=== PATIENT | female | born 1950 | race Caucasian/White ===

== ENCOUNTER → 2018-04-24 07:23 | Outpatient (CLI) | payer OTHER, SELFPAY | PROVIDERS: PCP Nurse Practitioner; Visit Provider Surgery | DX: M71.22 Synovial cyst of popliteal space [Baker], left knee (principal) | CPT/HCPCS: 99202 ==

== ENCOUNTER 2018-09-26 01:14 | Outpatient (CLI) | payer OTHER, SELFPAY ==
--- NOTE | 2018-09-26 12:10 | DI.MAMMO_ITS ---
SYMPTOMS/DIAGNOSIS: SCREENING, Z12.31; PREVENTATIVE HEALTH CARE, Z00.00; FAMILY H/O BREAST CA, Z80.3 BILATERAL SCREENING MAMMOGRAMS: Mammograms were interpreted according to the usual protocol including computer analysis with CAD system, tomosynthesis and C view imaging. Comparison is made with exams from 2011 through 2017. The breasts are composed of scattered fibroglandular densities, breast density category B. No suspicious masses or suspicious microcalcifications are seen. There has been no significant change. IMPRESSION: Category 1B, negative mammogram. Yearly screening mammography is recommended. [facility] ASSESSMENT OF FINDINGS: Negative. Category 1. Patient will receive a letter notifying them of these results. BI-RADS category B. There are scattered areas of fibroglandular density.
== END 2018-09-26 01:34 ==
PROVIDERS: PCP Nurse Practitioner; Visit Provider Nurse Practitioner
DX: Z12.31 Encounter for screening mammogram for malignant neoplasm of breast (principal); Z80.3 Family history of malignant neoplasm of breast
CPT/HCPCS: 77063; 77067

== ENCOUNTER 2018-10-15 00:50 | Outpatient (CLI) | payer OTHER, SELFPAY ==
--- NOTE | 2018-10-15 10:54 | DI.US_ITS ---
SYMPTOM/DIAGNOSIS: CAROTID ARTERY STENOSIS, I65.23 CAROTID ULTRASOUND: There is a mild amount of calcific plaque in the right common carotid bulb. The velocity measurements in the right internal carotid artery are in the normal range, consistent with mild stenosis. The left common carotid bulb shows a moderate quantity of calcific plaque. There is velocity elevation in the proximal left internal carotid artery consistent with a 50-60% stenosis. The right vertebral artery shows antegrade flow. Bi-directional flow is noted in the left vertebral artery. IMPRESSION: Moderate stenosis of 50-60% in the proximal left internal carotid artery.
== END 2018-10-15 01:10 ==
PROVIDERS: PCP Nurse Practitioner; Visit Provider Nurse Practitioner
DX: I65.22 Occlusion and stenosis of left carotid artery (principal)
CPT/HCPCS: 93880

== ENCOUNTER 2019-01-31 11:40 | Outpatient (REF) | payer OTHER, SELFPAY ==
[2019-01-31 13:53] LABS: HCT 42.1 % (36.0-46.0); HGB 13.9 g/dL (12.0-15.5); Mean Corpuscular Hemoglobin 29.6 pg (27.0-33.0); Mean Corpuscular Volume 89.6 fL (80-95); Mean Platelet Volume 11.4 fL (8.0-11.0); Platelet Count 267 x1000/uL (130-400); RBC Distribution Width 14.1 % (11.7-14.6); White Blood Cell Count 7.63 k/cumm (4.4-10.8)
[2019-01-31 13:59] LABS: Iron 91 ug/dL (50-175); Total Iron Binding Capacity 337 ug/dL (250-450); Transferrin Sat 27 % (15-50)
[2019-01-31 14:09] LABS: ALT 19 U/L (12-78); AST 27 U/L (15-37); Anion Gap 6.8 mmol/L (3-11); BUN 17 mg/dL (7-18); CO2 30.2 mmol/L (21.0-32.0); CREATININE 0.84 mg/dL (0.55-1.02); Calcium 9.3 mg/dL (8.5-10.1); Chloride 101 mmol/L (98-107); Cholesterol 211 mg/dL (50-200); Glucose 91 mg/dL (70-100); HDL Cholesterol 105 mg/dL (40-60); LDL CHOLESTEROL 80 mg/dL (<100); Potassium 4.3 mmol/L (3.5-5.1); Sodium 138 mmol/L (136-145); Triglyceride 40 mg/dL (30-150)
[2019-01-31 14:26] LABS: Vitamin D 25 Total 14.6 ng/ml (30-100)
[2019-02-01 14:08] LABS: ANA Interpretation Positive (NEGAT); ANA Titer Pattern SEE COMMENTS
[2019-02-01 15:29] LABS: Lyme Ab w Rflx to Lyme Confirm Negative
[2019-02-02 00:07] LABS: Anaplasma phagocytophilum Negative (Negative); B. miyamotoi PCR Negative (Negative); Babesia divergens/MO-1 Negative (Negative); Babesia duncani Negative (Negative); Babesia microti Negative (Negative); Ehrlichia chaffeensis Negative (Negative); Ehrlichia ewingii/canis Negative (Negative); Ehrlichia muris eauclairensis Negative (Negative)
== END 2019-01-31 12:00 ==
LOC: NCHCN 11:40
PROVIDERS: PCP Nurse Practitioner Family; Visit Provider Nurse Practitioner Family
DX: R53.83 Other fatigue (principal); I65.23 Occlusion and stenosis of bilateral carotid arteries; E55.9 Vitamin D deficiency, unspecified; R79.89 Other specified abnormal findings of blood chemistry
CPT/HCPCS: 80048; 80061; 82306; 83721; 85027; 83540; 83550; 84439; 84443; 84450; 84460; 86038; 86618; 87798

== ENCOUNTER 2019-02-08 10:03 | Outpatient (REF) | payer OTHER, SELFPAY ==
[2019-02-08 22:01] LABS: Vitamin B12 393 pg/mL (193-986)
[2019-02-11 10:18] LABS: Cyclic Citrullinated Peptide <2.5 U/mL (<5.0)
[2019-02-11 11:35] LABS: Rheumatoid Factor 9 IU/mL (<12.5)
[2019-02-12 10:22] LABS: Sm (Smith) Ab, IgG 2.9 Units (<20)
[2019-02-12 10:57] LABS: dsDNA Ab, IgG 56.6 IU/mL (<30)
== END 2019-02-08 10:23 ==
LOC: NCHCN 10:03
PROVIDERS: PCP Nurse Practitioner Family; Visit Provider Nurse Practitioner Family
DX: R76.0 Raised antibody titer (principal)
CPT/HCPCS: 86200; 82607; 86225; 86235; 86431

== ENCOUNTER 2019-03-04 13:38 | Outpatient (CLI) | payer OTHER, SELFPAY ==
--- NOTE | 2019-03-04 13:28 | DI.RAD_ITS ---
SYMPTOM/DIAGNOSIS: THUMB PAIN RIGHT THUMB: There is narrowing and spurring in the interphalangeal joint of the thumb. No bony erosions are seen. There is mild spurring at the first metacarpal phalangeal joint. There are severe degenerative changes at the first carpal metacarpal joint. There is prominent periarticular spurring, sclerosis and some lateral subluxation. IMPRESSION: Severe degenerative changes at the first carpal metacarpal joint.
== END 2019-03-04 13:58 ==
PROVIDERS: PCP Nurse Practitioner Family; Referring Provider Nurse Practitioner Family; Visit Provider Student in an Organized Health Care Education/Training Program
DX: M79.641 Pain in right hand (principal); M79.644 Pain in right finger(s); M18.11 Unilateral primary osteoarthritis of first carpometacarpal joint, right hand
CPT/HCPCS: 99202; 99203; 73140

== ENCOUNTER 2019-05-07 08:52 | Outpatient (CLI) | payer OTHER, SELFPAY ==
--- NOTE | 2019-05-07 08:04 | HPE_ITS ---
Assessment and Plan (1) Osteoarthritis of carpometacarpal (CMC) joint of right thumb: Current visit: No Status: Chronic Plan: Educated patient on surgery covering surgical technique, recovery process, benefits and risks including but not limited to risk of infection, blood clot, damage to soft tissue/blood vessels/nerves in detail. After discussion patient gives verbal understanding of risks and elects to proceed with scheduling surgery. Patient had opportunity to have questions answered to their satisfaction. They will contact office if issues arise. Patient will continue to be scheduled for right trapezial resection arthroplasty with Dr. Canela. Qualifiers: Osteoarthritis type: primary Qualified Code(s): M18.11 - Unilateral primary osteoarthritis of first carpometacarpal joint, right hand History of Present Illness Narrative: Ms. Boateng is a 68-year-old right-hand dominant female who presents to clinic for pre-operative visit for scheduled right trapezial resection arthroplasty with Dr. Canela. Patient denies having significant pain in her right thumb, however she has had difficulty using her right thumb since November 2018. She has had increased difficulty using her right thumb for desired activity such as when playing a guitar. Her thumb also feels out of place when at rest and when holding the steering wheel. She continues to have difficulty using her right hand for gripping i.e. opening jars. Denies any known direct injury or trauma; reports active lifestyle with many falls over the years during skiing and biking. Denies any symptoms of numbness or tingling in her right hand. Based on her x-rays patient was diagnosed with severe arthritis of the CMC joint of her thumb involving significant wear and sclerosis of her trapeizum. Due to her symptoms she was offered surgical intervention and was eager to proceed. Pertinent Surgical Information Patient reports she discontinued ASA 81 mg for carotid stenosis after experiencing significant bruising. Upon further questioning she states that her PCP and [employer] told her it was okay to stop ASA and that she did not need to take additional medication since her cholesterol had also improved. Reports history of murmur throughout her life that has been noted on periodically. Denies murmur being picked up regularly. Denies being told where murmur was appreciated. Denies any cardiac review of systems. Was originally diagnosed with Lupus, however after being seen at [facility] Rheumatology she was told she does not have Lupus. Further work up revealed that her symptoms of fatigue, muscle weakness and pain are likely due to vitamin D deficiency. Denies past medical history of: Hypertension, stroke, cardiac issues, angina, COPD, sleep apnea, renal issues, liver issues, hepatitis, gastrointestinal issues, ulcers, bleeding disorders, seizures, migraines, anxiety, depression, diabetes, thyroid issues Reports waking up agitated from anesthesia; denies any known complications. Denies prior complications from surgery. Review of Systems Constitutional Denies fever(s), Denies frequent falls and Denies headache(s) Eyes Denies change in vision ENT Denies dizziness, Denies ear discharge, Denies headache(s), Denies epistaxis, Denies nasal discharge and Denies sore throat Cardiovascular Denies chest pain, Denies rapid heart rate, Denies irregular heart rhythm, Denies palpitations, Reports dyspnea (with pollen), Denies dyspnea on exertion, Denies orthopnea, Denies paroxysmal nocturnal dyspnea and Denies slow heart rate Respiratory Denies cough, Reports dyspnea (with pollen), Denies dyspnea on exertion and Denies wheezing Gastrointestinal Denies abdominal pain, Denies melena, Denies hematochezia, Denies constipation, Denies diarrhea, Denies nausea and Denies vomiting Genitourinary Denies hematuria, Denies dysuria and Denies urinary urgency Musculoskeletal Reports as per HPI, Denies numbness and Denies tingling Neurologic Denies dizziness, Denies frequent falls, Denies headache(s), Denies numbness and Denies tingling Psychiatric Denies anxiety and Denies depression Endocrine Denies palpitations Allergic/Immunologic Denies wheezing PFSH Medical History Asthma Carotid artery stenosis Hypercholesterolemia Osteoarthritis Seasonal allergies Surgical History History of lumpectomy of both breasts (Acute) Hx of section (Chronic) Hx of tubal ligation (Chronic) Family History (Updated 05/07/19 @ 08:28 by Kristin Parsons) Mother Diabetes Mitral valve prolapse Aortic stenosis Kidney disease Father Alcohol abuse Sister Breast cancer Recovered Brother Leukemia CLL Sister Breast cancer Remission Sister Lung cancer Social History (Updated 05/07/19 @ 08:30 by Kristin Parsons) Smoking/Tobacco Use Status: Former Tobacco Use Quit Date: 01/01/80 Tobacco: How many years used: 10 Alcohol Intake: current Alcohol Intake frequency: a few times a week Alcohol type: wine Drug use: Never Substance use type: does not use current occupation: retired - SURGICAL PHYSICIAN ASSISTANT Other: - [place] Do you feel safe at home: Yes Do you feel safe in your relationship?: Yes Meds Home Medications Medication Instructions Recorded Confirmed Type albuterol sulfate [Proair Hfa] 2 puff INHALATION Q4H PRN inhaler 03/20/18 05/07/19 History NS atorvastatin 20 mg tablet 20 mg PO DAILY 05/07/19 05/07/19 History cholecalciferol (vitamin D3) 1,000 1,000 unit PO DAILY 05/07/19 05/07/19 History unit capsule naproxen sodium 220 mg capsule 220 mg PO PRN PRN cap 05/07/19 05/07/19 History Allergies Allergy/AdvReac Type Severity Reaction Status Date / Time Sulfa (Sulfonamide Allergy Severe Anaphylaxsi Verified 05/07/19 09:10 Antibiotics) s Penicillins AdvReac Mild rash Verified 05/07/19 09:10 Exam Const General: cooperative and no acute distress [facility] Head: normal to inspection, normocephalic and atraumatic Ears: external ears normal General nose exam: external nose normal and no nasal discharge Face and sinus: face symmetric Mouth: oral mucosae normal, lip normal, tongue normal and moist mucous membranes Teeth and gingiva: dentition normal Throat: posterior oropharynx normal Eyes General: appearance normal, both eyes and all related structures Pupils: PERRL EOM: movement deficit unable to deviate medially Neck Neck: trachea midline Carotids: normal carotid upstroke Lymphatic: no lymphadenopathy noted Resp Effort & Inspection: normal respiratory effort and able to speak in complete sentences Auscultation: clear to auscultation bilaterally, no rales, no rhonchi and no wheezes Cardio Heart Sounds: S1 normal, S2 normal and no murmurs Pulses: radial pulses present bilaterally GI Palpation: soft, no hepatosplenomegaly and nontender Auscultation: normal bowel sounds Skin General skin exam: no rashes or lesions noted Extrem Other: Right hand examination: Skin is intact without signs of erythema, lesions or erythema. Allens test was negative; brisk refill was noted. Sensation to light touch was intact in median, radial and ulnar nerve distributions.
== END 2019-05-07 09:12 ==
PROVIDERS: PCP Nurse Practitioner Family; Visit Provider Student in an Organized Health Care Education/Training Program
DX: Z01.818 Encounter for other preprocedural examination (principal); M18.11 Unilateral primary osteoarthritis of first carpometacarpal joint, right hand
CPT/HCPCS: NC

== ENCOUNTER 2019-05-15 11:21 | Day surgery (SDC) | payer OTHER, SELFPAY ==
[2019-05-07 08:55] VITALS: BP 147/81; PULSE 82; RESP 17; TEMP 36.7; O2SAT 98
[2019-05-15 11:30] VITALS: BP 138/76; PULSE 65; RESP 17; TEMP 36.7; O2SAT 98
[2019-05-15] MEDS: Lactated Ringers 1,000 ML 80 ML IV ×2 (12:00→15:34)
--- NOTE | 2019-05-15 12:58 | PDOC.DSDIS_ITS ---
Discharge Plan Disposition Patient Disposition: HOME Condition: Good Discharge Details Reason For Visit: Right Thumb CMC Arthritis Attending Provider: Jose Canela Primary Care Provider: Daisy Werner Home Meds and New Rx's Prescriptions: New hydrocodone-acetaminophen 5-325 mg tablet 1 tab PO Q4H PRN (Reason: pain) Qty: 14 RF: 0 acetaminophen 500 mg tablet 500 mg PO Q6H PRN PRN (Reason: pain) Qty: 60 RF: 3 Continued atorvastatin [Lipitor] 20 mg tablet 20 mg PO DAILY RF: 0 cholecalciferol (vitamin D3) 1,000 unit capsule 1,000 unit PO DAILY RF: 0 naproxen sodium [Aleve] 220 mg capsule 220 mg PO PRN PRNRF: 0 albuterol sulfate [ProAir HFA] 8.5 GM HFA aerosol inhaler 2 puff Inhalation Q4H PRN RF: 0 Discharge Instructions Additional Instructions: Activity: You should keep the hand/thumb elevated as much as possible for the first few days. You may use the other fingers as tolerated but avoid trying to do too much too soon. You may perform light activities with the splint in place. Dressing/Cast: Your splint should stay in place at all times. Do NOT get it wet. You may loosen the M[place]NICA wrap if you feel it is too tight and then rewrap more loosely. Medications: - You should take Tylenol and Aleve for baseline pain control. - You have Hydrocodone for breakthrough pain. - You may apply ice over the thumb. Follow-up: 10-14 days Referrals: Jose Canela MD [ [facility] STAFF PHYSICIAN] - Equipment/Supplies: Splint and Sling Activity:: Elevate Remove Dressings/Wound Care:: Do Not Remove Shower/Bathe:: Cover Diet:: As Tolerated Discharge Orders Discharge Orders: Discharge Order (Routine); Ordered 05/15/19 Ordered By: Jose Canela DS: Diagnosis Discharge Diagnosis (1) Osteoarthritis of carpometacarpal (CMC) joint of right thumb: Status: Chronic
[2019-05-15] MEDS: ceFAZolin 2 GM/50 ML BAG IVPB (14:12)
--- NOTE | 2019-05-15 15:00 | DI.RAD_ITS ---
SYMPTOM/DIAGNOSIS; OSTEOARTHRITIS CMC JOINT RIGHT THUMB C-ARM FLUOROSCOPY: Fluoroscopy Time: 4 sec C-Arm fluoroscopy was utilized by Dr. Canela. Please see Dr. Canela's procedure note. Hard copies show apparent screw placement at the level of the greater multangular bone.
[2019-05-15 15:43] VITALS: BP 87/50; PULSE 76; RESP 20; TEMP 37.1; O2SAT 96
[2019-05-15 15:48] VITALS: BP 106/43; PULSE 73; RESP 18; TEMP 37.1; O2SAT 97
[2019-05-15 15:53] VITALS: BP 104/50; PULSE 71; RESP 17; TEMP 37.1; O2SAT 97
[2019-05-15 16:07] VITALS: BP 108/54; PULSE 68; RESP 13; TEMP 37.1; O2SAT 96
[2019-05-15 16:52] VITALS: BP 109/59; PULSE 69; RESP 17; TEMP 36.4; O2SAT 96
--- NOTE | 2019-05-16 06:49 | ROE_ITS ---
Date of service: 05/15/19 Time of Service: 15:49 Operative Note DATE OF PROCEDURE: 05/15/19 PRE-OP DIAGNOSIS: Right First CMC Arthritis POST-OP DIAGNOSIS: same PROCEDURE: Right trapezial resection arthroplasty with suture suspensionplasty SURGEON: Jose Canela ANESTHESIA: GETA ESTIMATED BLOOD LOSS: 0 PATHOLOGY: none sent TOURNIQUET TIME: 45 COMPLICATIONS: None Patient was transported to: PACU Patient's condition: stable Indications: Jimena is a 68 year old female who has had symptoms of right thumb 1st CMC arthritis with pain and decreased mobility. Nonoperative treatment options had been trialed. Given their failure, I offered operative intervention. I reviewed the technical details. I reviewed the risk of the procedure to include bleeding, infection, pain, stiffness, instability, subsidence, damage to neighboring arteries, damage to the superficial radial nerve, and weakness. Despite these risks, the patient elected to proceed. Findings: There is notable arthrosis between the trapezium and the first metacarpal. There are large osteophytes around the entirety of the trapezium. Procedure Description: Gemma was greeted in the preoperative holding area. Name and surgical site were confirmed. The history and physical was completed. The consent was reviewed the patient and signed. Gemma was taken back to the operating room. The patient was placed and monitored anesthesia care. The right was then prepped with ChloraPrep and draped in a standard fashion after a nonsterile tourniquet was placed high up onto the arm. Prophylactic antibiotics in the form of cefazolin were administered. A timeout was performed for safe surgery. The surgical site was drawn on the skin overlying the dorsal radial border of the wrist. The planned surgical field was anesthetized with 0.25% bupivacaine with epinephrine. The limb was exsanguinated and the tourniquet was inflated where it stayed for 45 minutes. A 3 cm incision was made longitudinally over the radial wrist from the level of the radial styloid to just past the base of the first metacarpal. The skin was incised only. The deep tissue and subcutaneous fat was dissected with a tenotomy scissors trying to protect branches of the superficial radial nerve. Any branches that were identified were retracted out of the way. The first compartment extensor tendons were then identified. The interval between EPL and EPB was identified. The base of the first metacarpal was palpated. A needle was placed into the joint between the first metacarpal and the trapezium. A single x-ray was used to confirm appropriate positioning. The capsule of the trapezium was then incised. The radial border of the bone was identified. Soft tissues around trapezium were dissected bluntly to allow relaxation of vital arterial structures traversing the trapezium. A 2.7 mm tap was placed into the trapezium. This was used as a joystick. Using a [place] blade the capsule was elevated off the trapezium in a subperiosteal fashion. Once it appeared to have all the capsular attachments released, the tap was removed. The trapezium was then removed using a rongeur. The wound was inspected to make sure all portions of the trapezium were removed. X-ray was used to confirm appropriate removal of all bony fragments. The wound was then thoroughly irrigated. Using a 2-0 FiberWire then performed a suture suspension plasty. This was done by incorporating capsule and attachments of the APL at the base of the first metacarpal and creating a sling connected to the deep flexor carpi radialis tendon seen traversing deep within the wound towards the second metacarpal. This was done twice to create a crossing network of 2-0 suture. This was then tied overlying the base of the first metacarpal making sure not to over tighten and hourglass the tendons. This provided support to the first metacarpal to prevent any excessive subsidence. The tourniquet was then released. There is no significant bleeding. The capsule of the trapezium was then reapproximated with a 2-0 Vicryl. The skin was closed with 4-0 nylon. The hand was dressed with 4 x 4's, web roll, thumb spica splint. I did occasional counts are correct. Patient was transferred back to PACU in a stable condition.
== END 2019-05-15 17:12 | disposition home or self-care (01) ==
PROVIDERS: PCP Nurse Practitioner Family; Visit Provider Student in an Organized Health Care Education/Training Program
PROC: (CPT 25447; principal; 2019-05-15 11:30)
PROC: (CPT 25447; 2019-05-15 11:30)
DX: M18.11 Unilateral primary osteoarthritis of first carpometacarpal joint, right hand (principal); M25.541 Pain in joints of right hand
CPT/HCPCS: 25447; 76000; 73120; J0690; J1100; J1885; J2405; J3010

== ENCOUNTER → 2019-05-24 08:27 | Outpatient (BNVA) | payer OTHER, SELFPAY | PROVIDERS: PCP Nurse Practitioner Family; Referring Provider Nurse Practitioner Family; Visit Provider Student in an Organized Health Care Education/Training Program | DX: M18.11 Unilateral primary osteoarthritis of first carpometacarpal joint, right hand (principal); Z47.89 Encounter for other orthopedic aftercare ==

== ENCOUNTER 2019-06-18 01:30 | Outpatient (CLI) | payer OTHER, SELFPAY ==
--- NOTE | 2019-06-18 08:03 | DI.US_ITS ---
EXAM: US AAA SCREENING CLINICAL HISTORY: CARDIOVASCULAR SCREENING, Z13.6. TECHNIQUE: Ultrasound performed using standard protocol. COMPARISON: None FINDINGS: There is no evidence abdominal aortic aneurysm. The iliac arteries are normal in diameter. IMPRESSION: No evidence of abdominal aortic aneurysm.
== END 2019-06-18 01:50 ==
PROVIDERS: PCP Nurse Practitioner Family; Visit Provider Nurse Practitioner Family
DX: Z13.6 Encounter for screening for cardiovascular disorders (principal); R69 Illness, unspecified
CPT/HCPCS: 76706

== ENCOUNTER → 2019-06-28 09:49 | Outpatient (BNVA) | payer OTHER, SELFPAY | PROVIDERS: PCP Nurse Practitioner Family; Referring Provider Nurse Practitioner Family; Visit Provider Student in an Organized Health Care Education/Training Program | DX: Z47.89 Encounter for other orthopedic aftercare (principal); M18.11 Unilateral primary osteoarthritis of first carpometacarpal joint, right hand ==

== ENCOUNTER → 2019-08-15 09:32 | Outpatient (BNVA) | payer OTHER, SELFPAY | PROVIDERS: PCP Nurse Practitioner Family; Referring Provider Nurse Practitioner Family; Visit Provider Student in an Organized Health Care Education/Training Program | DX: M18.11 Unilateral primary osteoarthritis of first carpometacarpal joint, right hand (principal) | CPT/HCPCS: 99212 ==

== ENCOUNTER 2020-03-24 11:30 | Outpatient (REF) | payer OTHER, SELFPAY ==
[2020-03-24 21:09] LABS: HGB 13.5 g/dL (12.0-15.5); Mean Corp. HGB Concentration 32.9 g/dL (32.0-36.0); Mean Corpuscular Hemoglobin 30.2 pg (27.0-33.0); Mean Corpuscular Volume 91.7 fL (80-95); Mean Platelet Volume 11.3 fL (8.0-11.0); Platelet Count 279 x1000/uL (130-400); RBC 4.47 m/cumm (4.00-5.20); RBC Distribution Width 13.8 % (11.7-14.6); White Blood Cell Count 5.79 k/cumm (4.4-10.8)
[2020-03-24 21:11] LABS: Bilirubin Negative (Negative); Blood Negative (Negative); Clarity Clear (Clear); Glucose Negative (Negative); Ketones Negative (Negative); Leukocyte Esterase Trace (Negative); Nitrite Negative (Negative); Specific Gravity 1.015 (1.005-1.025); Urobilinogen 0.2 EU/dL (Up TO 0.2); pH 7.5 (5-8)
[2020-03-24 21:14] LABS: Bacteria Rare HPF (Negative); C & S Indicated? Yes; Casts Negative LPF (Negative); Crystals Negative HPF (Negative); Epithelial Cells Rare HPF (Negative); Mucus Negative (Negative); RBC Negative HPF (0-2); WBC 0-2 HPF (0-5)
== END 2020-03-24 11:50 ==
LOC: NCHCN 11:30
PROVIDERS: PCP Nurse Practitioner Family; Visit Provider Nurse Practitioner Family
DX: M25.9 Joint disorder, unspecified (principal); R82.998 Other abnormal findings in urine
CPT/HCPCS: 85027; 81003; 81015; 87086

== ENCOUNTER 2020-04-16 10:59 | Outpatient (REF) | payer OTHER, SELFPAY ==
[2020-04-17 11:02] LABS: Campylobacter PCR Negative (Negative); Salmonella PCR Negative (Negative); Shiga Toxin PCR Negative (Negative); Shigella/Enteroinvasive Ecoli Negative (Negative)
== END 2020-04-16 11:19 ==
LOC: NCHCN 10:59
PROVIDERS: PCP Nurse Practitioner Family; Visit Provider Physician Assistant
DX: R19.7 Diarrhea, unspecified (principal)
CPT/HCPCS: 87329; 87505; 87324

== ENCOUNTER 2020-07-01 00:56 | Outpatient (CLI) | payer OTHER, SELFPAY ==
--- NOTE | 2020-07-01 10:37 | DI.US_ITS ---
APPROVED REPORT EXAM: Comprehensive 2D, Doppler, and color-flow Echocardiogram Patient Location: Out-Patient Manager Business Information: Loni Peralta RDCS (AE) Indications: Murmur, Rheumatoid arthritis Other Information Study Quality: Good Conclusion Left Ventricle : The left ventricle is normal size. The left ventricular systolic function is normal. The left ventricular ejection fraction is within the normal range. There is normal left ventricular wall thickness. There is normal LV segmental wall motion. The left ventricular diastolic function is normal. LVEF is 55%. Right Ventricle : The right ventricle is normal size. The right ventricular systolic function is norm al. Atria : The left atrium size is normal. The right atrium size is normal. Mitral Valve : Mild mitral annular calcification. Mild mitral regurgitation. No evidence of mitral va lve stenosis. Tricuspid Valve : The tricuspid valve is normal in structure. Trace tricuspid regurgitation. Unable t o assess PA pressure. There is no tricuspid valve stenosis. Great Vessels : The aortic root is normal in size. The ascending aorta is mildly dilated. Aortic arch is not well visualized. IVC is normal in size and collapses >50% with inspiration. There is no prior study available for comparison. Wall motion Left Ventricle The left ventricle is normal size. The left ventricular systolic function is normal. The left ventric ular ejection fraction is within the normal range. There is normal left ventricular wall thickness. T here is normal LV segmental wall motion. The left ventricular diastolic function is normal. There is no ventricular septal defect visualized. LVEF is 55%. Right Ventricle The right ventricle is normal size. The right ventricular systolic function is normal. Atria The left atrium size is normal. The right atrium size is normal. The interatrial septum is intact wit h no evidence for an atrial septal defect. Aortic Valve The Aortic valve is sclerotic. Aortic valve is trileaflet. There is no aortic valvular stenosis. Trac e aortic regurgitation. Mitral Valve Mild mitral annular calcification. No evidence of mitral valve stenosis. Mild mitral regurgitation. Tricuspid Valve The tricuspid valve is normal in structure. There is no tricuspid valve stenosis. Trace tricuspid reg urgitation. Unable to assess PA pressure. Pulmonic Valve The pulmonary valve is normal in structure. There is no pulmonic valvular stenosis. Trace pulmonic re gurgitation. Great Vessels The aortic root is normal in size. The ascending aorta is mildly dilated. Aortic arch is not well vis ualized. IVC is normal in size and collapses >50% with inspiration. Pericardium There is no pericardial effusion. 2D Dimensions IVSD d PLAX 0.91 cm F: 0.6-1.0 LV Vol A2C d MOD 115.8 mL LVPW d PLAX 0.93 cm F: 0.6 - 1.0 LV Vol A4C d MOD 94.9 mL LVID d PLAX 4.93 cm F: 3.8 - 5.2 LA vol/ BSA A2C s A-L 34.8 mL/m2 LVDs 3.40 cm F: 2.2 - 3.5 LA vol/ BSA A4C s A-L 33.6 mL/m2 Ao Root d 2.79 cm F: 2.7 - 3.3 LA Vol/ BSA Biplane s A-L 35.3 mL/m2 RA Area A4C 11.88 cm2 LA Area A4C s MOD 18.57 cm2 RA Vol/ BSA A4C s A-L 17.3 mL/m2 LA Area A2C s MOD 18.29 cm2 Ao Asc Diam d 3.44 cm F: 2.3 - 3.1 LV EF A4C MOD 55.8 % LV EF Teichholz 57.4 % LV EF A2C MOD 54.8 % LVEF (Perkins's) 54.44 % F: 54 - 74 LV EF Biplane MOD 54.4 % LV Volume 87.45 mL F: 46 - 106 SV 58.65 mL LV Volume Index 54.65 mL/m2 F: 29 - 61 SV Index 36.56 mL/m2 LV Vol Biplane MOD 107.7 mL FS 30.25 % M-Mode TAPSE 2.09 cm (M/F) >1.7 LV Diastology MV E' medial 0.082 (>0.07 m/s) E/A Ratio 0.7 LV E/e MED 8.60 (<14) MV E Vmax 0.71 (0.4-1.3 m/s) MV E' lateral 0.090 (>0.1 m/s) MV A Vmax 1.05 (0.4-1.3 m/s) LV E/e LAT 7.75 (<14) MV E/A Ratio 0.67 MV E/E' medial 8.61 MV E/E' lateral 7.80 Aortic Valve LVOT Area 3.51 cm2 AoV Area Vmax 3.39 cm2 LVOT Vmax 1.28 m/s AoV Area/ BSA (Vmax) 2.11 cm2/m2 LVOT Mean Ronnie. 0.88 m/s JALEEL Mean Ronnie. 3.45 cm2 LVOT Peak Grad 6.6 mmHg JALEEL Mean Ronnie. Index 2.15 cm2/m2 LVOT Mean Grad 3.4 mmHg AR DT 3496 msec LVOT VTI 0.263 m AR PHT 1014 msec LVOT Diam s 2.10 cm AoV Vmax 1.33 m/s Velocity Ratio 0.96 AoV Mean Ronnie. 0.90 m/s AoV Peak Grad 7.1 mmHg LVOT SV 92.53 mL AoV Mean Grad 3.7 mmHg AoV VTI 0.307 m AoV Area VTI 3.01 cm2 AoV Area/ BSA (VTI) 1.88 cm/m2 Mitral Valve MV DT 293 (160-240 msec) MR Vmax 5.26 m/s MV PHT 85 msec MR VTI 1.829 m MV Area PHT 2.59 cm2 MR Peak Grad 110.5 mmHg MV VTI 0.214 m MR Mean Grad 84.8 mmHg MV VTI Annulus 0.225 m MR PISA Radius 0.40 cm MV Area VTI 4.56 (4.0-6.0 cm2) MR EROA 0.07 cm2 MR Aliasing Velocity 0.35 m/s MR PISA 1.01 cm2 Pulmonary Valve PV Vmax 1.09 (0.5-1.5 m/s) RVOT Peak Gr. 4.12 mmHg PV Peak Grad 4.7 mmHg RVOT Mean Gr. 2.10 mmHg PV Mean Grad 2.4 mmHg RVOT VTI 0.213 m PV VTI 0.246 m RVOT Vmax 1.02 m/s
== END 2020-07-01 01:16 ==
PROVIDERS: PCP Nurse Practitioner Family; Visit Provider Internal Medicine
DX: I34.0 Nonrheumatic mitral (valve) insufficiency (principal)
CPT/HCPCS: 93306

== ENCOUNTER 2020-10-01 20:26 | Outpatient (REF) | payer OTHER, SELFPAY ==
[2020-10-01 21:26] LABS: HGB 12.9 g/dL (11.2-15.7); MCH 30.1 pg (27.0-33.0); MCHC 33.1 % (32.0-36.0); MCV 91.1 fL (80-95); MPV 10.8 fL (8.0-11.0); Platelet Count 281 10^3/uL (130-400); RBC 4.28 10^6/uL (3.93-5.22); RDW 13.2 % (11.7-14.6); RDW-SD 44.2 fL; WBC 7.17 10^3/uL (4.4-10.8)
[2020-10-01 21:50] LABS: ALT 17 U/L (14-59); AST 25 U/L (15-37); BUN 14 mg/dL (7-18); CREATININE 0.88 mg/dL (0.55-1.02); Calcium 9.3 mg/dL (8.5-10.1); Chloride 102 mmol/L (98-107); Glucose 93 mg/dL (74-106); Potassium 4.4 mmol/L (3.5-5.1); Sodium 137 mmol/L (136-145); TSH (W/Ref FT4) 3.41 uIU/mL (0.36-3.74)
== END 2020-10-01 20:46 ==
LOC: NCHCN 20:26
PROVIDERS: PCP Nurse Practitioner Family; Visit Provider Nurse Practitioner Family
DX: Z00.00 Encounter for general adult medical examination without abnormal findings (principal)
CPT/HCPCS: 80048; 85027; 84443; 84450; 84460

== ENCOUNTER 2020-10-15 00:54 | Outpatient (CLI) | payer OTHER, SELFPAY ==
--- NOTE | 2020-10-15 12:24 | DI.MAMMO_ITS ---
EXAM: MG MAMMO SCREENING CLINICAL HISTORY: SCREENING, Z12.31 TECHNIQUE: Bilateral full field digital CC and MLO mammographic images were obtained with 3D tomosyn thesis and utilizing computer aided detection (CAD). COMPARISON: Available for comparison. FINDINGS: Masses/Architectural Distortion: None seen. Microcalcifications: No suspicious pleomorphic-type are seen. Skin Thickening/Nipple Retraction: None. IMPRESSION: 1. No significant interval change with no specific features of malignancy noted. 2. Unless there is more urgent need, screening mammography is recommended, as per [place] guidelines. BI-RADS Category 1 - Negative Breast Density - Category B - Scattered areas of fibroglandular density Breast density category C or D implies that the patient has dense breast tissue. Dense breast tissue is very common and is not abnormal but dense breast tissue can make it harder to find cancer on a ma mmogram. Also, dense breast tissue may increase their breast cancer risk. This information about the result of the mammogram report was provided to the patient to raise their awareness. Use this report when you speak with the patient about their risks for breast cancer, which includes their family hist ory. At that time, you may recommend for more screening tests (Ultrasound or MRI) as they might be us eful based on their risk. A negative radiographic report should not delay biopsy if a dominant or clinically suspicious mass is present. Up to ten percent of cancers are not identified on mammography. A negative report may reinforce clinical impression. Adenosis and dense breasts may obscure an underlying neoplasm. False positive reports average 6 to 10%. Patient will receive a letter notifying them of these results.
== END 2020-10-15 00:55 | disposition home or self-care (01) ==
LOC: DI 00:54
PROVIDERS: PCP Nurse Practitioner Family; Visit Provider Nurse Practitioner Family
DX: Z12.31 Encounter for screening mammogram for malignant neoplasm of breast (principal)
CPT/HCPCS: 77063; 77067

== ENCOUNTER 2020-12-09 01:59 | Outpatient (CLI) | payer OTHER, SELFPAY ==
--- NOTE | 2020-12-09 | DI.DEXA_ITS ---
EXAM: XR DEXA BONE DENSITY W/WO ANALY CLINICAL HISTORY: SCREENING FOR OSTEOPOROSIS IN POSTMENOPAUSAL WOMAN,Z13.820 TECHNIQUE: Routine DEXA evaluation of the lumbar spine, hip, or forearm. COMPARISON: No exams were available for comparison FINDINGS: Performed on a Hologic unit. Lateral image: No compression fracture evident. Lumbar Spine total T-score: -0.6 Hip total T-score:-1.3 Independent reading at the femoral neck yields a T-score -1.5 Forearm total T-score: -2.8 IMPRESSION: Bone mineral density measures in the osteopenia bordering on osteoporosis range. Fracture risk is mod erate-high. Note: Any spine fracture indicates 5x risk for subsequent spine fracture and 2x risk for subsequent h ip fracture. World Health Organization criteria for BMD interpretation classify patients: Normal...... T- Score at or above -1.0 Osteopenic... T- Score between -1.0 and -2.5 Osteoporosis... T-Score at or below -2.5
== END 2020-12-09 02:19 ==
PROVIDERS: PCP Nurse Practitioner Family; Visit Provider Nurse Practitioner Family
DX: M81.0 Age-related osteoporosis without current pathological fracture (principal); M85.88 Other specified disorders of bone density and structure, other site; Z78.0 Asymptomatic menopausal state
CPT/HCPCS: 77080

== ENCOUNTER 2021-11-19 09:08 | Outpatient (CLI) | payer MEDICARE, SELFPAY ==
--- NOTE | 2021-11-19 09:00 | DI.RAD_ITS ---
Exam(s) XR WRIST LT COMPLETE EXAM: XR WRIST LT COMPLETE CLINICAL HISTORY: LEFT WRIST INJURY. TECHNIQUE: 2D digital imaging was performed. COMPARISON: No exams were available for comparison FINDINGS: There is an impacted fracture of the distal radius. No significant dorsal angulation. Fracture viol ates the radiocarpal joint surface. There is no obvious fracture of the ulnar styloid. The impacted radial fracture results in positive ulnar variance. Scaphoid appears intact as does the scapholunate distance. Degenerative changes are noted at the 1st carpometacarpal joint. Also somewhat abnormal widening of the try scaphoid joint space. This is pr obably unrelated to the acute trauma here. IMPRESSION: Impacted fracture of the distal radius as described above. This involves the radiocarpal joint. DATA REPOSITORY: RADIATION DOSE DELIVERED:
== END 2021-11-19 09:09 | disposition home or self-care (01) ==
LOC: DIORS 09:09
PROVIDERS: PCP Nurse Practitioner Family; Referring Provider Nurse Practitioner Family; Visit Provider Student in an Organized Health Care Education/Training Program
DX: W22.8XXD Striking against or struck by other objects, subsequent encounter; S52.502A Unspecified fracture of the lower end of left radius, initial encounter for closed fracture
CPT/HCPCS: 99214; 73110

== ENCOUNTER 2021-11-19 20:27 | Outpatient (CLI) | payer MEDICARE, SELFPAY ==
--- NOTE | 2021-11-19 13:16 | DI.CT_ITS ---
Exam(s) CT UPPER EXTREMITY LT WO EXAM: CT UPPER EXTREMITY LT WO CLINICAL HISTORY: PAIN, LEFT WRIST FRACTURE, S62.102A TECHNIQUE: Imaging Protocol: Axial computed tomography images with coronal and sagittal reformatted images were created and reviewed. CONTRAST MATERIAL: None COMPARISON: CR XR WRIST LT COMPLETE from 11/19/2021 FINDINGS: OSSEOUS: There is an impacted fracture of the distal radius which violates the articular surface of t he radiocarpal joint at the level of the lunate. This may not be acute. Nevertheless, there is a no nunion. There is no fracture of the ulnar styloid. Positive ulnar variance is noted, this related t o the foreshortening of the impacted humerus fracture. There is no scaphoid fracture nor abnormality of the scapholunate distance. Lunate unremarkable. There are moderate-advanced degenerative change s in 1st carpometacarpal joint-articulation between the thumb metacarpal and trapezium. This consist s of joint space narrowing and degenerative subarticular cysts. Also marginal osteophyte off the out er aspect of the trapezium. There is increased distance between the distal scaphoid and the trapezium-trapezoid (tri scaphoid lulu nt). Distance between the articular surface of the distal scaphoid and the articular surface of the trapezium is 3.2 millimeters. This appears to be associated with synovial thickening. No erosions a t this level. Similar findings are not seen at the other articulations in the carpal row bones. 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 This violates the radiocarpal joint articular surfa ce. No obvious ulnar styloid fracture. Positive ulnar variance. Other findings as above. RADIATION DOSE DELIVERED: 114.3mGy.cm Total DLP DATA REPOSITORY: All CT scans at this facility are submitted to the National Radiology Data Registry (NRDR) Dose Index Registry (DIR) with the [employer] (A[employer]). RADIATION OPTIMIZATION: All CT scans at this facility use at least one of these dose optimization te chniques: automated exposure control; mA and/or kV adjustment per patient size (includes targeted exa ms where dose is matched to clinical indication); or iterative reconstruction.
== END 2021-11-19 20:47 ==
PROVIDERS: PCP Nurse Practitioner Family; Visit Provider Student in an Organized Health Care Education/Training Program
DX: S52.502K Unspecified fracture of the lower end of left radius, subsequent encounter for closed fracture with nonunion (principal); X58.XXXD Exposure to other specified factors, subsequent encounter
CPT/HCPCS: 73200

== ENCOUNTER 2021-11-22 09:46 | Outpatient (CLI) | payer MEDICARE, SELFPAY ==
[2021-11-22 12:41] LABS: Source Nasal/Nares
[2021-11-22 22:31] LABS: COVID-19 PCR Negative (Negative)
== END 2021-11-22 09:47 | disposition home or self-care (01) ==
LOC: LBO 09:47
PROVIDERS: PCP Nurse Practitioner Family; Visit Provider Student in an Organized Health Care Education/Training Program
DX: Z20.822 Contact with and (suspected) exposure to COVID-19 (principal); Z01.818 Encounter for other preprocedural examination
CPT/HCPCS: 87635; U0005

== ENCOUNTER 2021-11-23 13:16 | Day surgery (SDC) | payer MEDICARE, SELFPAY ==
[2021-11-23] VITALS (19 sets, daily range): BP systolic 103–213; BP diastolic 48–80; PULSE 71–104; RESP 10–20; TEMP 36.5–37; O2SAT 94–98; BMI 29.2
--- NOTE | 2021-11-23 14:01 | W.ANESPRE ---
General Info Date of Service Date Performed: 11/23/21 Height: 4 ft 11 in Weight: 65.8 kg Body Mass Index (BMI): 29.2 Surgical Procedure: Operation Date: 11/23/21 16:10 Proposed Procedure Side Surgeon p Wrist ORIF Distal Radius Non-Union w/External Fixation, Potential Iliac Crest Bone Grafting Left Jose Canela MD s Iliac Bone Graft/Harvesting Jose Canela MD Meds Allergies and Home Medications Allergies Allergy/AdvReac Type Severity Reaction Status Date / Time Sulfa (Sulfonamide Allergy Severe Anaphylaxsi Verified 11/23/21 13:36 Antibiotics) s Penicillins AdvReac Mild rash Verified 11/23/21 13:36 Home Medication Medication Instructions Recorded ProAir HFA 90 mcg/actuation 2 puff INHALATION Q4H PRN inhaler 03/20/18 aerosol inhaler (albuterol sulfate) NS atorvastatin 20 mg tablet (Lipitor) 20 mg PO DAILY 05/07/19 cholecalciferol (vitamin D3) 25 1,000 unit PO DAILY 05/07/19 mcg (1,000 unit) capsule naproxen sodium 220 mg capsule 220 mg PO PRN PRN cap 05/07/19 (Aleve) acetaminophen 500 mg tablet 500 mg PO Q6H PRN PRN #60 tab 05/15/19 hydroxychloroquine 200 mg tablet 200 mg PO DAILY 11/19/21 oxycodone 5 mg tablet 5 mg PO Q4H PRN #5 tab 11/23/21 Current Visit Medications: Current Medications Generic Name Dose Route Start Last Admin Trade Name Freq PRN Reason Stop Dose Admin Acetaminophen 650 mg 11/23/21 13:47 Acetaminophen 325 Mg Tab PO Q4H PRN PRN Ringer's Solution 1,000 mls @ 80 mls/hr 11/23/21 06:00 IV 12/22/21 23:59 INFUSION MERY Cefazolin Sodium/Dextrose 2 gm in 50 mls @ 100 mls/hr 11/23/21 06:00 Ancef Duplex IVPB 11/23/21 16:00 PREOP MERY Ondansetron HCl 4 mg/ Sodium 52 mls @ 200 mls/hr 11/23/21 13:47 Chloride IVPB Q6H PRN PRN IV Miscellaneous Supplies 1 each 11/23/21 06:00 Iv Access IV 12/22/21 23:59 DIRECTED MERY Oxycodone HCl 5 mg 11/23/21 13:47 Oxycodone 5 Mg Tab PO Q3H PRN PRN Pain Sodium Chloride 0 ml 11/23/21 06:00 Normal Saline Flush 10 Ml Syr IV 12/22/21 23:59 PRN PRN Sodium Chloride 0 ml 11/23/21 06:00 Normal Saline 10 Ml Vial IJ 12/22/21 23:59 DIRECTED PRN Sterile Water 0 ml 11/23/21 06:00 Water,Injection,Sterile 10 Ml Vial IJ 12/22/21 23:59 DIRECTED PRN PFSH Active Problems Active Problems: Problem Status Onset Code Osteoarthritis of carpometacarpal (CMC) joint of right thumb M18.11 Carotid stenosis, left I65.22 Vitamin D deficiency disease E55.9 Pain in wrist M25.539 Closed fracture of left distal radius S52.502A 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 Osteoarthritis Seasonal allergies Surgical History Surgical History History of lumpectomy of both breasts Hx of section Hx of tubal ligation Tobacco Smoking/Tobacco Use Status: Former Tobacco Use Alcohol Alcohol Intake: current Alcohol intake frequency: a few times a week Alcohol type: wine Substance Use Substance use: Never Substance use type: does not use Vital Signs and Lab Results Vital Signs Most Recent Vital Signs in EMR: Most Recent Vital Signs Temp Pulse Resp BP Pulse Ox 37 C 86 16 177/68 H 96 11/23/21 13:41 11/23/21 13:41 11/23/21 13:41 11/23/21 13:41 11/23/21 13:41 Lab Results Blood Type / Crossmatch: No Data to Display Complete Blood Count: No Data to Display Complete Metabolic Panel: No Data to Display Liver Function Panel: No Data to Display Coagulation Panel: No Data to Display Cardiac Panel: No Data to Display Arterial Blood Gas: No Data to Display Venous Blood Gas: No Data to Display Pancreas Panel: No Data to Display Thyroid Panel: No Data to Display Infectious Disease: Coronavirus (COVID-19)(PCR) Negative (Negative) 11/22/21 10:15 11/22/21 Coronavirus 2019 Source Nasal/Nares 11/22/21 10:15 11/22/21 Blood Cultures: No Data to Display Toxicology Panel: No Data to Display Anesthesia Assessment and Plan Anesthesia History Personal History: No History of Anesthesia Complications Family History: No Family History of Anesthesia Complications Exercise Tolerance Exercise Tolerance: Metabolic Equivalents>4 Pertinent Negatives Pertinent Negatives: No Symptoms of GERD, No Major Cardiovascular Symptoms or Complaints and No Major Pulmonary Symptoms or Complaints Cardiac & Pulmonary Exam Cardiac Exam: Normal S1/S2 Heart Sounds Pulmonary Exam: Clear Bilateral Breath Sounds Implantable Cardiac Device Does patient have a Pacemaker or an ICD?: No Airway Exam Known Difficult Airway: No Mallampati Class: 3 Mouth Opening: Narrow (< 3cm) Thyromental Distance: Greater than 3 cm Neck Range of Motion: Full ROM Neck Circumference: Normal Teeth Condition: Normal Dentition ASA Classification ASA Score: ASA 2 Emergency Case?: No NPO Status NPO Status: NPO Clears >2 hours, Solids >8 hours Anesthesia Plan Resuscitation Status: Full Code Anesthesia Technique: General Anesthesia Airway Planned: LMA Monitors Used: Standard Monitors
[2021-11-23] MEDS: Lactated Ringers 1,000 ML 80 ML IV (14:29)
--- NOTE | 2021-11-23 14:30 | DI.RAD_ITS ---
Exam(s) XR WRIST LT LIMITED EXAM: XR WRIST LT LIMITED CLINICAL HISTORY: LEFT WRIST FRACTURE. TECHNIQUE: 2D digital imaging was performed. COMPARISON: CR XR WRIST LT COMPLETE from 11/19/2021 FINDINGS: Fluoroscopy was provided during close reduction left wrist fracture. See procedure report for detail s Cumulative dose 0.5825mGy IMPRESSION: DATA REPOSITORY: RADIATION DOSE DELIVERED:
[2021-11-23] MEDS: Ibuprofen 800 MG TAB PO (14:39)
[2021-11-23] MEDS: Acetaminophen 500 MG TAB 1000 MG PO (14:40)
[2021-11-23] MEDS: ceFAZolin 2 GM/50 ML BAG IVPB (15:32)
[2021-11-23] MEDS: Bupivacaine 0.5% Pres-Free 30 ML VIAL (17:24)
[2021-11-23] MEDS: fentaNYL 100 MCG/2 ML VIAL IVP (17:56)
--- NOTE | 2021-11-23 18:12 | W.ANESPOSTOP ---
Postoperative Evaluation Date, Time and Location Date Performed: 11/23/21 Time Performed: 18:12 Patient Location: PACU Vital Signs Most Recent Imported Vital Signs: Most Recent Vital Signs Temp Pulse Resp BP Pulse Ox 36.5 C 71 20 175/75 H 97 11/23/21 18:06 11/23/21 18:06 11/23/21 18:06 11/23/21 18:06 11/23/21 18:06 Pain Score Most Recent Pain Score: Most Recent Pain Score Pain Level 7 11/23/21 18:06 Assessment Mental Status: Awake (Alert & Oriented to Patient Baseline) Airway and Respiratory Function: Patent airway with normal (patient baseline) respiratory exam Cardiovascular Function: Hemodynamically Stable Hydration Status: Adequately Hydrated Nausea & Vomiting: No Nausea or Vomiting Pain: Pain is tolerable per patient Peripheral Nerve Block: Patient did not receive a nerve block Teaching Patient Teaching: Advised to seek followup for the following concerns (See explanation) Concerns: Poorly Controlled Hypertension
[2021-11-23] MEDS: Ketorolac 15 MG/ML VIAL IVP (18:21)
[2021-11-23] MEDS: hydrALAZINE 20 MG/ML VIAL 10 MG IVP ×2 (18:40→19:07)
--- NOTE | 2021-11-23 19:45 | NUR.NOTE ---
Patient came to the Med-Surg department from the PACU. She is alert and oriented x3. Left arm wrapped in karine-wrapped with ice compressed same replenished. Pt denies any pain or discomfort at this time. Wishes to remain on the stretcher at this time, state she is very comfortable. Vitals sign document, continued assessment
[2021-11-23] MEDS: Acetaminophen 325 MG TAB 650 MG PO (20:14)
--- NOTE | 2021-11-23 21:57 | W.PM.OP ---
Date of service: 11/23/21 Time of Service: 17:40 Operative Note Operative Note DATE OF PROCEDURE: 11/23/21 PRE-OP DIAGNOSIS: Left Distal Radius Fracture Malunion/Nonunion POST-OP DIAGNOSIS: same PROCEDURE: Open Reduction and Internal Fixation of Left Distal Radius Malunion/Nonunion SURGEON: Jose Canela COMPUTER NUMERIC CONTROL SETTER: Amanuel Arellano ANESTHESIA TYPE: General LMA/ETT Refer to Anesthesia Record ESTIMATED BLOOD LOSS: 30 PATHOLOGY: none sent TOURNIQUET TIME: 0 COMPLICATIONS: None Patient was transported to: PACU Patient's condition: stable Indications: Jimena is a 71yo female who I have seen for a distal radius fracture. This presentation was delayed with initial visit almost 2 months after the initial injury with progressive worsening function and deformity. Given the deformity, displacement, fracture pattern, and effect on daily function, I recommended surgical fixation with correction of the malunion and nonunion. I reviewed the risk of the procedure to include bleeding, infection, stiffness, damage to nerves and vessels, damage to muscles and tendons, malunion, nonunion, hardware prominence, tendon rupture, need for repeat procedures. Despite these risks, the patient elected to proceed. Findings: There is a distal radius fracture which had 3 primary parts. The malunion was taken down using an extensive approach to the radius. The central portion of the radius had not healed - thus a partially malunited distal radius fracture. It was reduced and fixed with a Synthes volar locking plate. Procedure Description: Jimena was greeted in the preoperative holding area. The correct patient and site was confirmed and marked. The history and physical was updated. The consent was reviewed the patient and signed. The patient was taken to the operating room and placed in the supine position. All bony problems were well-padded. The left arm was placed onto a radiolucent hand table. A nonsterile tourniquet was placed high up on the arm. Prophylactic antibiotics in the form of cefazolin were administered. The left arm was prepped with ChloraPrep and draped in a standard fashion. A timeout was performed for safe surgery. A standard longitudinal incision was made overlying the flexor carpi radialis tendon starting at the distal wrist crease and moving proximally. The skin was incised sharply. The flexor carpi radialis tendon and its sheath is identified. The sheath was opened. The tendon was moved ulnarly in the floor of the sheath was incised. Blunt dissection the flexor pollicis longus muscle belly and tendon were also made radially exposing the pronator quadratus and the distal radius. The pronater quadratus was elevated with an ulnar-based flap. This exposed the volar distal radius and the fracture. Given the fracture pattern and radial styloid involvement, the brachioradialis was released. A hartley elevator was used for full exposure of the volar surface of the distal radius. The primary fracture line was exposed. There were some areas around the periphery that appeared to be healed although there were portions of the fracture which were not healed. There was significant fracture callous and soft tissue at the fracture site. Using a series of elevators, curettes, and knife, the fracture was fully debrided of any fibrous tissue and callus formation. I used a freer elevator to help mobilize the fragments. There was a primary epihpyseal fragment with a radial and lunate component which was not taken down. An extended approach to the radius was performed by subperiosteal elevation of the soft tissue of the radius while slowly pronating the radial shaft out of the forearm. This allowed complete removal of early healing and mobilization of the fracture. There was notable shortening and loss of radial inclination. I then performed a closed reduction. Using gentle traction and fracture manipulation, this reduction was held. Fluoroscopic images were used. I was able to improve the alignment altough length was challenging to get to where what normal would be considered. However, the bone quality was actually surprisingly good. While there was a loss of metaphyseal bone, the cortical bone was quite healthy and was able to tolerate manipulation without fracgture or collapse. An appropriately sized Synthes volar locking plate was then placed onto the bony surface of the distal radius. Was then held there with a distal radius clamp sandwiching the plate to the distal segment. A single K wire was placed through the distal end. Fluoroscopy was once again used to confirm appropriate positioning of the plate on the distal radius. A reduction K wire was placed into the slotted hole on the shaft but not tightened all the way to allow for manipulation of the distal segment onto the proximal shaft. A single nonlocking screw was placed to the distal portion of the plate securing the plate against the bone of the distal radial metaphysis. Once again, the plate was evaluated to make sure it was aligned appropriately. The single screw was also checked to make sure it was in appropriate positioning for trajectory of future screws. The remainder of the screws within the volar locking plate were filled with locking screws. These were made sure not to penetrate the dorsal cortex. Once these were applied the proximal portion of the plate was further reduced down onto the shaft, which further reduce the distal segment. This was held in position with a tightened reduction K wire. Fluoroscopy was then used against confirm appropriate reduction. Nonlocking screws were placed within the 3 shaft screw holes while maximally distracting the distal fragment. Final x-rays were obtained which demonstrated adequate reduction and positioning of hardware. The dorsal sunrise view was also obtained to ensure correct sizing of screws. The wound was then thoroughly irrigated. The pronator quadratus was reapproximated with a 0 Vicryl. The tourniquet was released and there was no notable vascular injury. The fingers were warm and well-perfused. The deep dermal layer was closed with a 2-0 Vicryl. The skin was closed with 4-0 Monocryl. The wound was dressed with 4 x 4's, web roll. A short arm splint was applied. At the end the case all counts are correct. Patient was transferred back to the PACU in stable condition.
== END 2021-11-23 21:21 | disposition home or self-care (01) ==
LOC: SUR 13:51 → MS 19:44 → SUR 12-04 16:47
PROVIDERS: PCP Nurse Practitioner Family; Visit Provider Student in an Organized Health Care Education/Training Program
PROC: (CPT 25607; principal; 2021-11-23 16:00)
DX: S52.592A Other fractures of lower end of left radius, initial encounter for closed fracture (principal); W22.8XXA Striking against or struck by other objects, initial encounter; E55.9 Vitamin D deficiency, unspecified; I65.22 Occlusion and stenosis of left carotid artery
CPT/HCPCS: 25607; C1776; 73100; J0360; J0690; J1100; J1885; J2001; J2405; J3010

== ENCOUNTER 2021-12-03 20:18 | Outpatient (REF) | payer MEDICARE, SELFPAY ==
[2021-12-03 21:13] LABS: Abs Immature Grans 0.01 10^3/uL (0.0-0.06); Absolute Basophil Count 0.04 10^3/uL (0.0-0.2); Absolute Eosinophil Count 0.05 10^3/uL (0.0-0.7); Absolute Monocyte Count 0.79 10^3/uL (0.1-0.8); Basophils % 0.6; Eosinophils % 0.7; HGB 12.8 g/dL (11.2-15.7); Immature Grans % 0.1; Lymphocytes % 18.1; MCH 29.2 pg (27.0-33.0); MCHC 32.8 % (32.0-36.0); MPV 10.2 fL (8.0-11.0); Neutrophils % 69.5; Nucleated RBC 0 %; Platelet Count 379 10^3/uL (130-400); RBC 4.38 10^6/uL (3.93-5.22); RDW 12.5 % (11.7-14.6); RDW-SD 41.1 fL; WBC 7.19 10^3/uL (4.4-10.8)
[2021-12-03 21:26] LABS: ALT 18 U/L (14-59); AST 23 U/L (15-37); Alkaline Phosphatase 82 U/L (46-116); Anion Gap 10.6 mmol/L (3-11); BUN 12 mg/dL (7-18); Bilirubin, Total 0.4 mg/dL (0.2-1.0); CO2 25.4 mmol/L (21.0-32.0); CREATININE 0.8 mg/dL (0.55-1.02); Calcium 9.1 mg/dL (8.5-10.1); Chloride 97 mmol/L (98-107); Glucose 94 mg/dL (74-106); Potassium 4.2 mmol/L (3.5-5.1); Sodium 133 mmol/L (136-145); Total Protein 7.4 g/dL (6.4-8.2)
[2021-12-06 05:27] LABS: Vitamin D 25 Total 28.2 ng/mL (30-100)
== END 2021-12-03 20:19 | disposition home or self-care (01) ==
LOC: NCHCN 20:18
PROVIDERS: PCP Nurse Practitioner Family; Visit Provider Nurse Practitioner Family
DX: E55.9 Vitamin D deficiency, unspecified (principal); Z51.81 Encounter for therapeutic drug level monitoring
CPT/HCPCS: 80053; 82306; 85025

== ENCOUNTER 2021-12-06 11:26 | Outpatient (CLI) | payer MEDICARE, SELFPAY ==
--- NOTE | 2021-12-06 10:30 | DI.RAD_ITS ---
Exam(s) XR WRIST LT LIMITED EXAM: XR WRIST LT LIMITED INDICATION: 1st post op s/p ORIF L distal radius malunion/non. COMPARISON: CT CT UPPER EXTREMITY LT WO from 11/19/2021 CR XR WRIST LT COMPLETE from 11/19/2021 CR XR WRIST LT LIMITED from 11/23/2021 TECHNIQUE: 2D digital imaging was performed. Two views. FINDINGS: A fixation plate is noted along the volar aspect of the distal radius for fracture fixation. There h as been no change in fracture or hardware alignment. Dense material is again noted at distal radius and ulna. Soft tissue swelling remains present. Severe degenerative changes are noted at the 1st ca rpal metacarpal joint. DATA REPOSITORY: RADIATION DOSE DELIVERED:
== END 2021-12-06 11:27 | disposition home or self-care (01) ==
LOC: DIORS 11:26
PROVIDERS: PCP Nurse Practitioner Family; Referring Provider Nurse Practitioner Family; Visit Provider Student in an Organized Health Care Education/Training Program
DX: S52.502A Unspecified fracture of the lower end of left radius, initial encounter for closed fracture (principal); X58.XXXA Exposure to other specified factors, initial encounter
CPT/HCPCS: 73100

== ENCOUNTER 2022-01-06 21:04 | Outpatient (REF) | payer MEDICARE, SELFPAY ==
[2022-01-06 21:09] LABS: BUN 24 mg/dL (7-18); Calcium 8.9 mg/dL (8.5-10.1); Chloride 96 mmol/L (98-107); Glucose 119 mg/dL (74-106); Potassium 4.8 mmol/L (3.5-5.1); Sodium 133 mmol/L (136-145)
== END 2022-01-06 21:05 | disposition home or self-care (01) ==
LOC: NCHCN 21:04
PROVIDERS: PCP Nurse Practitioner Family; Visit Provider Nurse Practitioner Family
DX: I10 Essential (primary) hypertension (principal); E78.00 Pure hypercholesterolemia, unspecified
CPT/HCPCS: 80048

== ENCOUNTER 2022-01-13 12:11 | Outpatient (CLI) | payer MEDICARE, SELFPAY ==
--- NOTE | 2022-01-13 09:48 | DI.RAD_ITS ---
Exam(s) XR WRIST LT LIMITED EXAM: XR WRIST LT LIMITED CLINICAL HISTORY: S/P ORIF DISTAL RADIUS FX TECHNIQUE: COMPARISON: CR XR WRIST LT LIMITED from 12/06/2021 FINDINGS: Two views were obtained and show previous described plate and screw fixation of fracture of the dista l radius, no gross interval change in alignment comparison with examination of December 06. IMPRESSION: RADIATION DOSE DELIVERED: Total DLP
== END 2022-01-13 12:12 | disposition home or self-care (01) ==
LOC: DIORS 12:11
PROVIDERS: PCP Nurse Practitioner Family; Referring Provider Nurse Practitioner Family; Visit Provider Student in an Organized Health Care Education/Training Program
DX: S52.502D Unspecified fracture of the lower end of left radius, subsequent encounter for closed fracture with routine healing (principal); X58.XXXD Exposure to other specified factors, subsequent encounter
CPT/HCPCS: 73100

== ENCOUNTER 2022-03-10 15:00 | Outpatient (CLI) | payer MEDICARE, SELFPAY ==
--- NOTE | 2022-03-10 13:37 | DI.RAD_ITS ---
Exam(s) XR WRIST LT LIMITED EXAM: XR WRIST LT LIMITED CLINICAL HISTORY: f/u L DISTAL RADIUS FRACTURE. TECHNIQUE: 2D digital imaging was performed. Two views were obtained. COMPARISON: CR XR WRIST LT LIMITED from 01/13/2022 FINDINGS: BONES: There are stable post operative changes present. No new fracture or dislocation. JOINTS: The joint spaces are well maintained. No joint effusion is present. SOFT TISSUE: Normal. IMPRESSION: Stable postoperative changes. DATA REPOSITORY: RADIATION DOSE DELIVERED:
== END 2022-03-10 15:01 | disposition home or self-care (01) ==
LOC: DIORS 15:00
PROVIDERS: PCP Nurse Practitioner Family; Referring Provider Nurse Practitioner Family; Visit Provider Physician Assistant
DX: S52.502K Unspecified fracture of the lower end of left radius, subsequent encounter for closed fracture with nonunion (principal); X58.XXXA Exposure to other specified factors, initial encounter
CPT/HCPCS: 73100

== ENCOUNTER 2022-06-15 14:04 | Outpatient (REF) | payer MEDICARE, SELFPAY ==
[2022-06-15 20:00] LABS: Anion Gap 8.2 mmol/L (3-11); BUN 23 mg/dL (7-18); CO2 28.8 mmol/L (21.0-32.0); CREATININE 1.3 mg/dL (0.55-1.02); Calcium 9.2 mg/dL (8.5-10.1); Chloride 93 mmol/L (98-107); Estimated GFR 43.42 (mL/min/1.73m2); Glucose 95 mg/dL (74-106); Potassium 4.6 mmol/L (3.5-5.1); Sodium 130 mmol/L (136-145)
[2022-06-16 06:07] LABS: Vitamin D 25 Total 31.7 ng/mL (30-100)
== END 2022-06-15 14:05 | disposition home or self-care (01) ==
LOC: NCHCN 14:04
PROVIDERS: PCP Nurse Practitioner Family; Visit Provider Nurse Practitioner Family
DX: E55.9 Vitamin D deficiency, unspecified (principal); I10 Essential (primary) hypertension
CPT/HCPCS: 80048; 82306

== ENCOUNTER → 2022-07-28 02:12 | Outpatient (CLI) | payer MEDICARE, SELFPAY ==
--- NOTE | 2022-07-28 | DI.MAMMO_ITS ---
Exam(s) MAMMO SCREENING EXAM: MAMMO SCREENING CLINICAL HISTORY: SCREENING MAMMO Z12.31 TECHNIQUE: Mammograms were interpreted according to the usual protocol including computer analysis w [employer] CAD system, tomosynthesis and C-view imaging. COMPARISON: FINDINGS: The breasts are of moderate density with fairly symmetrical distribution fibroglandular tissue. No d ominant mass or clumped microcalcification is identified in either breast. The current examination i s compared with previous examinations including October 2020 and there has been no gross interval ch jeremías in appearance in comparison with the prior studies. IMPRESSION: No specific evidence of malignancy at this time. Routine screening examinations are suggested at yea rly intervals due to the family history of breast carcinoma. BI-RADS Category 1 - Negative Breast Density - Category B - Scattered areas of fibroglandular density
== END ==
PROVIDERS: PCP Nurse Practitioner Family; Visit Provider Nurse Practitioner Family
DX: Z12.31 Encounter for screening mammogram for malignant neoplasm of breast (principal)
CPT/HCPCS: 77063; 77067

== ENCOUNTER 2022-09-19 16:05 | Outpatient (REF) | payer MEDICARE, SELFPAY ==
[2022-09-19 17:20] LABS: Calculated LDL 88 mg/dL (<100); Cholesterol 225 mg/dL (<200); HDL Cholesterol 128 mg/dL (40-60); Triglyceride 45 mg/dL (<150)
[2022-09-19 18:07] LABS: Vitamin D 25 Total 31.1 ng/mL (30-100)
== END 2022-09-19 16:06 | disposition home or self-care (01) ==
LOC: NCHCN 16:05
PROVIDERS: PCP Nurse Practitioner Family; Visit Provider Nurse Practitioner Family
DX: I10 Essential (primary) hypertension (principal); E55.9 Vitamin D deficiency, unspecified; E78.00 Pure hypercholesterolemia, unspecified
CPT/HCPCS: 80061; 82306

== ENCOUNTER 2022-12-13 16:26 | Outpatient (REF) | payer MEDICARE, SELFPAY ==
[2022-12-13 21:40] LABS: HCT 37.5 % (36.0-46.0); HGB 12.4 g/dL (11.2-15.7); MCH 30.2 pg (27.0-33.0); MCV 92 fL (80-95)
[2022-12-13 21:41] LABS: Abs Immature Grans 0.01 10^3/uL (0.0-0.06); Absolute Basophil Count 0.07 10^3/uL (0.0-0.2); Absolute Eosinophil Count 0.17 10^3/uL (0.0-0.7); Absolute Lymphocyte Count 1.25 10^3/uL (1.2-3.4); Absolute Monocyte Count 0.79 10^3/uL (0.1-0.8); Absolute Neutrophil Count 4.11 10^3/uL (1.2-6.7); Basophils % 1.1; Eosinophils % 2.7; Immature Grans % 0.2; Lymphocytes % 19.5; MCHC 33.1 % (32.0-36.0); MPV 11.1 fL (8.0-11.0); Monocytes % 12.3; Neutrophils % 64.2; Platelet Count 303 10^3/uL (130-400); RDW 13.4 % (11.7-14.6); RDW-SD 45.3 fL
[2022-12-13 21:52] LABS: ALT 18 U/L (14-59); AST 29 U/L (15-37); Alkaline Phosphatase 71 U/L (46-116); Anion Gap 7.1 mmol/L (3-11); BUN 35 mg/dL (7-18); Bilirubin, Total 0.3 mg/dL (0.2-1.0); CO2 28.9 mmol/L (21.0-32.0); CREATININE 1.3 mg/dL (0.55-1.02); Calcium 9.1 mg/dL (8.5-10.1); Chloride 99 mmol/L (98-107); Estimated GFR 43.42 (mL/min/1.73m2); Glucose 95 mg/dL (74-106); Potassium 5.2 mmol/L (3.5-5.1); Sodium 135 mmol/L (136-145); Total Protein 7.7 g/dL (6.4-8.2)
== END 2022-12-13 16:27 | disposition home or self-care (01) ==
LOC: NCHCN 16:26
PROVIDERS: PCP Nurse Practitioner Family; Visit Provider Nurse Practitioner Family
DX: L93.0 Discoid lupus erythematosus (principal)
CPT/HCPCS: 80053; 85025

== ENCOUNTER → 2023-05-22 10:11 | Outpatient (BNVA) | payer MEDICARE, SELFPAY | PROVIDERS: PCP Nurse Practitioner Family; Referring Provider Nurse Practitioner Family; Visit Provider Student in an Organized Health Care Education/Training Program | DX: M17.12 Unilateral primary osteoarthritis, left knee (principal) | CPT/HCPCS: 99213 ==

== ENCOUNTER 2023-07-04 16:20 | Outpatient (REF) | payer MEDICARE, SELFPAY ==
[2023-07-04 16:16] LABS: Anion Gap 7.8 mmol/L (3-11); BUN 22 mg/dL (7-18); CO2 28.2 mmol/L (21.0-32.0); CREATININE 0.9 mg/dL (0.55-1.02); Calcium 9.6 mg/dL (8.5-10.1); Chloride 101 mmol/L (98-107); Estimated GFR 67.08 (mL/min/1.73m2); Glucose 91 mg/dL (74-106); Potassium 4.2 mmol/L (3.5-5.1); Sodium 137 mmol/L (136-145)
[2023-07-04 17:15] LABS: Vitamin D 25 Total 29.8 ng/mL (30-100)
== END 2023-07-04 16:21 | disposition home or self-care (01) ==
LOC: NCHCN 16:20
PROVIDERS: PCP Nurse Practitioner Family; Visit Provider Nurse Practitioner Family
DX: E55.9 Vitamin D deficiency, unspecified (principal); I10 Essential (primary) hypertension
CPT/HCPCS: 80048; 82306

== ENCOUNTER 2023-07-17 01:02 | Outpatient (CLI) | payer MEDICARE, SELFPAY ==
[2023-07-17 13:28] LABS: HCT 38.5 % (36.0-46.0); HGB 12.9 g/dL (11.2-15.7); MCH 30.2 pg (27.0-33.0); MCHC 33.5 % (32.0-36.0); MCV 90 fL (80-95); MPV 9.5 fL (8.0-11.0); Platelet Count 328 10^3/uL (130-400); RBC 4.27 10^6/uL (3.93-5.22); RDW 12.9 % (11.7-14.6); RDW-SD 42.5 fL; WBC 7.73 10^3/uL (4.4-10.8)
[2023-07-17 13:30] LABS: Anion Gap 9.1 mmol/L (3-11); BUN 26 mg/dL (7-18); CO2 24.9 mmol/L (21.0-32.0); CREATININE 1.3 mg/dL (0.55-1.02); Calcium 9.6 mg/dL (8.5-10.1); Chloride 93 mmol/L (98-107); Estimated GFR 43.15 (mL/min/1.73m2); Glucose 112 mg/dL (74-106); Potassium 4.4 mmol/L (3.5-5.1); Sodium 127 mmol/L (136-145)
== END 2023-07-17 01:03 | disposition home or self-care (01) ==
PROVIDERS: PCP Nurse Practitioner Family; Visit Provider Student in an Organized Health Care Education/Training Program
DX: M17.12 Unilateral primary osteoarthritis, left knee (principal); Z01.818 Encounter for other preprocedural examination
CPT/HCPCS: 36415; 80048; 85027

== ENCOUNTER 2023-07-17 15:14 | Outpatient (CLI) | payer MEDICARE, SELFPAY ==
--- NOTE | 2023-07-17 11:00 | DI.RAD_ITS ---
Exam(s) XR STANDING ALIGNMENT EXAM: XR STANDING ALIGNMENT CLINICAL HISTORY: PRE OP L TKA. TECHNIQUE: 2D digital imaging was performed. Four images were obtained. COMPARISON: DX XR KNEE LEFT 4 OR MORE VIEWS from 02/21/2023 FINDINGS: BONES: The hips are well maintained. There are marked degenerative changes of the knees bilaterally characterized by joint space narrowing and osteophytes. The findings are most marked in the medial f emoral tibial joints of both knees. The ankles are well maintained.The length of the left lower extr emity is 1 cm longer than the right lower extremity. SOFT TISSUE: Atherosclerosis. IMPRESSION: Marked osteoarthritis of the knees bilaterally. DATA REPOSITORY: RADIATION DOSE DELIVERED:
== END 2023-07-17 15:15 | disposition home or self-care (01) ==
LOC: DIORS 15:15
PROVIDERS: PCP Nurse Practitioner Family; Visit Provider Physician Assistant
DX: M17.12 Unilateral primary osteoarthritis, left knee (principal); Z01.818 Encounter for other preprocedural examination
CPT/HCPCS: 77073

== ENCOUNTER → 2023-07-21 02:43 | Outpatient (CLI) | payer MEDICARE, SELFPAY ==
--- NOTE | 2023-07-21 08:15 | DI.MRI_ITS ---
Exam(s) MR LOWER JOINT LT WO EXAM: MR LOWER JOINT LT WO CLINICAL HISTORY: PAIN, PRE SURGICAL PLANNING,mass lt lower leg,R22.42. TECHNIQUE: Multiplanar multisequence MRI was performed. COMPARISON: DX XR KNEE LEFT 4 OR MORE VIEWS from 02/21/2023 CR XR STANDING ALIGNMENT from 07/17/2023 FINDINGS: BONES: Prominent spurring at the medial femoral condyle medial tibial plateau. Subchondral cysts in the medial femoral condyle. Degenerative edema in the medial tibial plateau and medial femoral condy le. Mild spurring from the lateral femoral condyle and lateral tibial plateau. JOINTS: A large joint effusion is present. Articular cartilage: Patellofemoral joint: Articular cartilage shows mild thinning.. Medial femoral tibial joint: Articular denuding of cartilage over medial femoral condyle and medial tibial plateau. Lateral femoral tibial joint: Articular cartilage is unremarkable. TENDONS: Extensor mechanism: Unremarkable. Medial retinaculum: Unremarkable. Lateral retinaculum: Unremarkable. Popliteus: Unremarkable. MUSCLES: Unremarkable. MENISCI: The medial meniscus is severely peripherally displaced. The lateral meniscus is unremarkabl e. SOFT TISSUES: Kinney's cyst. LIGAMENTS: Anterior Cruciate: Appears thin but intact. Posterior Cruciate: Unremarkable. Medial Collateral:Unremarkable. Lateral Collateral: Unremarkable. OTHER: IMPRESSION: Severe degenerative changes of the medial femoral tibial joint and medial meniscus. Large joint effusion. Kinney cyst. DATA REPOSITORY:
== END ==
PROVIDERS: PCP Nurse Practitioner Family; Visit Provider Student in an Organized Health Care Education/Training Program
DX: M17.12 Unilateral primary osteoarthritis, left knee; Z01.818 Encounter for other preprocedural examination; R22.42 Localized swelling, mass and lump, left lower limb; M71.22 Synovial cyst of popliteal space [Baker], left knee
CPT/HCPCS: 73721

== ENCOUNTER 2023-07-25 07:10 | Day surgery (SDC) | payer MEDICARE, SELFPAY ==
[2023-07-25] VITALS (10 sets, daily range): BP systolic 94–181; BP diastolic 52–88; PULSE 71–86; RESP 13–20; TEMP 36–36.7; O2SAT 93–99; BMI 25.3
--- NOTE | 2023-07-25 07:26 | DSE_ITS ---
Date of service: 07/25/23 Time of Service: 07:30 DS: Diagnosis Discharge Diagnosis (1) Primary osteoarthritis of left knee: Status: Chronic Discharge Plan Disposition Patient Disposition: Home Condition: Good Discharge Details Reason For Visit: Left knee DJD Attending Provider: Jose Canela Primary Care Provider: Daisy Werner Home Meds and New Rx's Prescriptions: New meloxicam 15 mg tablet 15 mg PO DAILY Qty: 30 1RF Rx Instructions: Take one tablet daily for pain and inflammation aspirin 81 mg tablet,delayed release (DR/EC) 81 mg PO BID 30 Days Qty: 60 0RF acetaminophen 500 mg tablet 1,000 mg PO Q8H PRN Qty: 90 0RF Rx Instructions: Take two tablets up to every 8 hours as needed for pain pantoprazole 40 mg tablet,delayed release (DR/EC) 40 mg PO DAILY Qty: 14 0RF dexamethasone 4 mg tablet 4 mg PO DAILY Qty: 2 0RF Rx Instructions: Take one tablet once daily for two days docusate sodium [Colace] 100 mg capsule 100 mg PO BID Qty: 30 0RF gabapentin 300 mg capsule 300 mg PO QHS Qty: 14 0RF Rx Instructions: Take one tablet at bedtime oxycodone 5 mg tablet 5 mg PO Q4H PRNQty: 18 0RF Rx Instructions: Take one tablet up to every 4 hours as needed for severe postoperative pain Continued hydroxychloroquine 200 mg tablet 200 mg PO DAILY cholecalciferol (vitamin D3) 1,000 unit capsule 1,000 unit PO DAILY amlodipine 5 mg tablet 5 mg PO DAILY albuterol sulfate [ProAir HFA] 8.5 GM HFA aerosol inhaler 2 puff Inhalation Q4H PRN Discontinued acetaminophen 500 mg tablet 1,000 mg PO Q8H PRN (Reason: pain) Qty: 60 3RF naproxen 250 mg tablet 250 - 500 mg PO BID PRNQty: 60 0RF No Action aspirin 81 mg capsule 81 mg PO DAILY Discharge Instructions Additional Instructions: Total Knee Discharge Instructions Activity: The most important activity is to walk and to work on gentle motion (both flexion and extension). You should try to take short walks a few times a day. It is important that when resting you work on keeping the knee straight. Avoid putting a pillow behind the knee as this will encourage flexion. Work on range of motion exercises as provided by Physical Therapy. - Start outpatient physical therapy within 2 weeks. - You should wear the KASI hose on both legs for 2 weeks. You may remove these a t night. You may also use any compression sock in place of the KASI hose. - Utilize [employer] to review exercises, see videos on exercises and obtain basic information pertaining to your surgery and your recovery. Dressing: Remove the Sushil wrap by 2 days after your surgery and put on the KASI stocking given to you from the hospital. Keep the surgical dressing (underneath the SUSHIL wrap) in place for at least one week. After the first week it may be removed and replaced with light gauze and tape or nothing. The wound and dressing may get wet after 3 days but avoid soaking the dressing or otherwise it will need to be changed. Many people prefer covering the dressing with cling wrap (saran wrap) to minimize it from getting soaked. If it gets wet, just pat dry. If it starts to peel off then it will need to be changed. Medications: - You should take Tylenol and anti-inflammatory Meloxicam as your primary pain control medications. If the Meloxicam is too expensive or not covered, please call the office for another alternative (Advil/Ibuprofen or Naproxen/Aleve) - You have been prescribed a stronger pain medication Oxycodone for breakthrough pain, take as needed as prescribed. - You have also been prescribed a stomach acid reduction agent Pantoprozole to help reduce stomach acid and reflux. - You have been prescribed Gabapentin to take at night for restlessness and nerve pain. - You will be taking Aspirin 81mg twice a day for DVT prevention unless instructed otherwise. - You have also been prescribed Decadron to take to control post-operative nausea and pain. You will start this tomorrow. - If you have constipation you should take Colace (which has been prescribed) or Miralax (which is available boce-[id number]). It takes most people 3-4 days to have a bowel movement. Follow-up: 2 weeks If you have any acute concerns or questions, please do not hesitate to contact the office at [phone]. You may contact Dr. Canela with any questions after hours through the hospital at [phone] or on his cell phone at [phone]. Stand Alone Forms: Anesthesia Discharge Inst., Anes.Nerve Block Instructions, Anderson Campos ([facility]) Referrals: Jose Canela MD [ [facility] STAFF PHYSICIAN] - 08/07/23 1:15 pm Equipment/Supplies: Walker Activity:: Elevate Remove Dressings/Wound Care:: Do Not Remove Shower/Bathe:: 72 hours and Cover Diet:: As Tolerated Discharge Orders Discharge Orders: Discharge Order (Routine); Ordered 07/25/23 Ordered By: Kristin Parsons Discharge Data Discharge Date/Time-TO BE ENTERED AT DEPARTURE: 07/25/23 14:25 Discharge Comment: pt d/c from [facility] DS: Summary Time Spent with Patient providing and/or coordinating discharge services: Less than 30 minutes Status at Discharge Functional status at discharge: uses cane/walker Overall status at discharge: patient is progressing back to baseline Mental Status: mental status grossly normal Speech and Movement: speech and movement normal Mood: congruent mood Affect: normal affect Exam Psych Mental Status: mental status grossly normal Speech and Movement: speech and movement normal Mood: congruent mood Affect: normal affect DS: Data Vitals/I&O Vitals and I&O: Intake & Output 07/24/23 07/24/23 07/25/23 11:59 23:59 11:59 Weight 123 lb 15.984 oz 123 lb 15.984 oz PFSH All Active Problems Mass of left lower leg (Acute) Hypertension (Chronic) Primary osteoarthritis of left knee (Chronic) Steroid injection: 02/21/2023 ([facility]) Carotid stenosis, left (Chronic) 10/15/18 50-60% stenosis Vitamin D deficiency disease (Acute) Medical History White coat syndrome with hypertension 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 s/p ORIF---DOS 11/23/21 Osteoarthritis of carpometacarpal (CMC) joint of right thumb s/p trapezial arthroplasty: 05/15/2019 History of lumpectomy of both breasts Hx of section Hx of tubal ligation Family History Mother Diabetes Mitral valve prolapse Aortic stenosis Kidney disease Father Alcohol abuse Sister Breast cancer Recovered Brother Leukemia CLL Sister Breast cancer Remission Sister Lung cancer Social History Smoking/Tobacco Use Status: Former Tobacco Use Quit Date: 09/11/79 Tobacco: How many years used: 10 Smoking risk assessment performed?: Yes Alcohol Intake: current Alcohol Intake frequency: a few times a week Alcohol type: wine Drug use: Never Substance use type: does not use Housing: house current occupation: retired - [employer] Current gender identity: female Other: - Genaro Do you feel safe at home: Yes (lives alone) Additional Social history: lives alone Time Spent with Patient Time Spent with Patient: <45 minutes Time was spent: obtaining and/or reviewing separately otained hiistory, ordering medications,tests, procedures and care coordination
[2023-07-25] MEDS: Lactated Ringers 1,000 ML 80 ML IV (07:53)
[2023-07-25] MEDS: Gabapentin 300 MG CAP PO (07:57)
[2023-07-25] MEDS: Acetaminophen 500 MG TAB 1000 MG PO (07:57)
--- NOTE | 2023-07-25 07:58 | ANES.PREOP_ITS ---
General Info Date of Service Date Performed: 07/25/23 Height: 4 ft 11 in Weight: 57 kg Body Mass Index (BMI): 25.3 Surgical Procedure: Operation Date: 07/25/23 09:40 Proposed Procedure Side Surgeon p Knee Total Arthroplasty, Cementless CR Left Jose Canela MD Meds Allergies and Home Medications Allergies Allergy/AdvReac Type Severity Reaction Status Date / Time Sulfa (Sulfonamide Allergy Severe Anaphylaxsi Verified 07/24/23 14:05 Antibiotics) s Penicillins AdvReac Mild rash Verified 07/24/23 14:05 Home Medication Medication Instructions Recorded ProAir HFA 90 mcg/actuation 2 puff inhalation Q4H PRN 03/20/18 aerosol inhaler (albuterol sulfate) cholecalciferol (vitamin D3) 25 1,000 unit PO DAILY 05/07/19 mcg (1,000 unit) capsule hydroxychloroquine 200 mg tablet 200 mg PO DAILY 11/19/21 amlodipine 5 mg tablet 5 mg PO DAILY 07/17/23 acetaminophen 500 mg tablet 1,000 mg (2 x 500 mg) PO Q8H PRN 07/25/23 pain #90 tabs aspirin 81 mg tablet,delayed 81 mg PO BID 30 days #60 tabs 07/25/23 release dexamethasone 4 mg tablet 4 mg PO DAILY #2 tabs 07/25/23 docusate sodium 100 mg capsule 100 mg PO BID #30 caps 07/25/23 (Colace) gabapentin 300 mg capsule 300 mg PO QHS #14 caps 07/25/23 meloxicam 15 mg tablet 15 mg PO DAILY #30 tabs 07/25/23 oxycodone 5 mg tablet 5 mg PO Q4H PRN #18 tabs 07/25/23 pantoprazole 40 mg tablet,delayed 40 mg PO DAILY #14 tabs 07/25/23 release Current Visit Medications: Current Medications Generic Name Dose Route Start Last Admin Trade Name Freq PRN Reason Stop Dose Admin Acetaminophen 1,000 mg 07/25/23 06:00 07/25/23 07:57 Acetaminophen 500 Mg Tab PO 07/25/23 16:00 1,000 mg PREOP MERY Administration Gabapentin 300 mg 07/25/23 06:00 07/25/23 07:57 Gabapentin 300 Mg Cap PO 07/25/23 16:00 300 mg PREOP MERY Administration Hydromorphone HCl 0.5 mg 07/25/23 07:24 Hydromorphone 2 Mg/Ml Syr IVP 08/24/23 07:23 Q2H PRN PRN Tranexamic Acid 1,000 mg/ 60 mls @ 360 mls/hr 07/25/23 06:00 Sodium Chloride IVPB 07/25/23 16:00 PREOP MERY Ringer's Solution 1,000 mls @ 80 mls/hr 07/25/23 06:00 07/25/23 07:53 IV 08/23/23 23:59 80 mls/hr INFUSION MERY Administration Cefazolin Sodium/Dextrose 2 gm in 50 mls @ 100 mls/hr 07/25/23 06:00 Ancef Duplex IVPB 07/25/23 16:00 PREOP MERY Cefazolin Sodium/Dextrose 1 gm in 50 mls @ 100 mls/hr 07/25/23 08:00 Ancef Duplex IVPB 07/26/23 00:29 Q8H MERY IV Miscellaneous Supplies 1 each 07/25/23 06:00 Iv Access IV 08/23/23 23:59 DIRECTED MERY Oxycodone HCl 0 mg 07/25/23 07:24 Oxycodone 5 Mg Tab PO 08/24/23 07:23 Q3H PRN PRN Pain Sodium Chloride 0 ml 07/25/23 06:00 Normal Saline Flush 10 Ml Syr IV 08/23/23 23:59 PRN PRN Sodium Chloride 0 ml 07/25/23 06:00 Normal Saline 10 Ml Vial IJ 08/23/23 23:59 DIRECTED PRN Sterile Water 0 ml 07/25/23 06:00 Water,Injection,Sterile 10 Ml Vial IJ 08/23/23 23:59 DIRECTED PRN PFSH Active Problems Active Problems: Problem Status Onset Code Mass of left lower leg R22.42 Hypertension I10 Primary osteoarthritis of left knee M17.12 Carotid stenosis, left I65.22 Vitamin D deficiency disease E55.9 Medical History Medical History (Updated 07/24/23 @ 14:10 by Serafin Fletcher) White coat syndrome with hypertension 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 Asthma Osteoarthritis Hypercholesterolemia Seasonal allergies Carotid artery stenosis Medical History Comments:: Pt. 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 s/p ORIF---DOS 11/23/21 Osteoarthritis of carpometacarpal (CMC) joint of right thumb s/p trapezial arthroplasty: 05/15/2019 History of lumpectomy of both breasts Hx of section Hx of tubal ligation Tobacco Smoking/Tobacco Use Status: Former Tobacco Use Alcohol Alcohol Intake: current Alcohol intake frequency: a few times a week Alcohol type: wine Substance Use Substance use: Never Substance use type: does not use Vital Signs and Lab Results Vital Signs Most Recent Vital Signs in EMR: Most Recent Vital Signs Temp Pulse Resp BP Pulse Ox 36.7 C 86 20 181/84 H 96 07/25/23 07:44 07/25/23 07:44 07/25/23 07:44 07/25/23 07:44 07/25/23 07:44 Lab Results Blood Type / Crossmatch: No Data to Display Complete Blood Count: White Blood Count 7.73 10^3/uL (4.4-10.8) 07/17/23 13:10 Red Blood Count 4.27 10^6/uL (3.93-5.22) 07/17/23 13:10 Hemoglobin 12.9 g/dL (11.2-15.7) 07/17/23 13:10 Hematocrit 38.5 % (36.0-46.0) 07/17/23 13:10 Platelet Count 328 10^3/uL (130-400) 07/17/23 13:10 Complete Metabolic Panel: Sodium 127 mmol/L (136-145) L 07/17/23 13:10 Potassium 4.4 mmol/L (3.5-5.1) 07/17/23 13:10 Chloride 93 mmol/L (98-107) L 07/17/23 13:10 Carbon Dioxide 24.9 mmol/L (21.0-32.0) 07/17/23 13:10 BUN 26 mg/dL (7-18) H 07/17/23 13:10 Creatinine 1.3 mg/dL (0.55-1.02) H 07/17/23 13:10 Est GFR (CKD-EPI 2020) 43.15 (mL/min/1.73m2) 07/17/23 13:10 Calcium 9.6 mg/dL (8.5-10.1) 07/17/23 13:10 Glucose 112 mg/dL (74-106) H 07/17/23 13:10 Liver Function Panel: No Data to Display Coagulation Panel: No Data to Display Cardiac Panel: No Data to Display Arterial Blood Gas: No Data to Display Venous Blood Gas: No Data to Display Pancreas Panel: No Data to Display Thyroid Panel: No Data to Display Infectious Disease: No Data to Display Blood Cultures: No Data to Display Toxicology Panel: No Data to Display Imaging and Studies Imaging and Studies Study information below may be from another EMR and interpreted by another provider. Please see original notes in EMR for more complete details. Echocardiogram Summary: 07/01/20: Conclusion Left Ventricle : The left ventricle is normal size. The left ventricular systolic function is normal. The left ventricular ejection fraction is within the normal range. There is normal left ventricular wall thickness. There is normal LV segmental wall motion. The left ventricular diastolic function is normal. LVEF is 55%. Right Ventricle : The right ventricle is normal size. The right ventricular systolic function is normal. Atria : The left atrium size is normal. The right atrium size is normal. Mitral Valve : Mild mitral annular calcification. Mild mitral regurgitation. No evidence of mitral valve stenosis. Tricuspid Valve : The tricuspid valve is normal in structure. Trace tricuspid regurgitation. Unable to assess PA pressure. There is no tricuspid valve stenosis. Great Vessels : The aortic root is normal in size. The ascending aorta is mildly dilated. Aortic arch is not well visualized. IVC is normal in size and collapses >50% with inspiration. There is no prior study available for comparison. Carotid Artery Summary:: 10/15/2018: CAROTID ULTRASOUND: There is a mild amount of calcific plaque in the right common carotid bulb. The velocity measurements in the right internal carotid artery are in the normal range, consistent with mild stenosis. The left common carotid bulb shows a moderate quantity of calcific plaque. There is velocity elevation in the proximal left internal carotid artery consistent with a 50-60% stenosis. The right vertebral artery shows antegrade flow. Bi-directional flow is noted in th e left vertebral artery. IMPRESSION: Moderate stenosis of 50-60% in the proximal left internal carotid artery. Anesthesia Assessment and Plan Anesthesia History Personal History: Other Family History: No Family History of Anesthesia Complications Exercise Tolerance Exercise Tolerance: Metabolic Equivalents>4 Pertinent Negatives Pertinent Negatives: No Symptoms of GERD, No Major Cardiovascular Symptoms or Complaints and No Major Pulmonary Symptoms or Complaints Cardiac & Pulmonary Exam Cardiac Exam: Normal S1/S2 Heart Sounds Pulmonary Exam: Clear Bilateral Breath Sounds Implantable Cardiac Device Does patient have a Pacemaker or an ICD?: No Airway Exam Known Difficult Airway: No Mallampati Class: 3 Mouth Opening: Narrow (< 3cm) Thyromental Distance: Greater than 3 cm Neck Range of Motion: Full ROM Neck Circumference: Normal Teeth Condition: Normal Dentition ASA Classification ASA Score: ASA 2 Emergency Case?: No NPO Status NPO Status: NPO Clears >2 hours, Solids >8 hours Anesthesia Plan Resuscitation Status: Full Code Anesthesia Technique: Spinal Anesthesia Airway Planned: Natural Airway Pain Management: Surgeon and patient request nerve block Monitors Used: Standard Monitors
[2023-07-25] MEDS: ceFAZolin 2 GM/50 ML BAG IVPB (09:22)
--- NOTE | 2023-07-25 09:53 | W.ANESNERVE ---
Nerve Block Single Injection Procedure Date and Time Date Performed: 07/25/23 Procedure Start: 08:37 Location Where Procedure Performed Procedure Location: Day Surgery Unit Reason Performed: Postoperative Analgesia Requesting Provider: Jose Canela Timeout Performed Timeout Performed: Yes Monitoring Used ECG, Blood Pressure, SpO2 and See EMR for corresponding vital signs Sterility Sterility: Hand Hygiene, Surgical Cap, Surgical Mask, Sterile Gloves and Chlorhexidine Sedation Given During Procedure Sedation Given (Indicate Dose Given): Versed IV Dose:: 2mg Patient Mental Status Patient Mental Status: Sedate with meaningful communication Nerve Block 1st Nerve Block: Laterality: Left Block Type: Adductor Canal Ultrasound Image Saved?: Yes Needle / Catheter Used: 100mm SonoPlex II Local Anesthetic Bolus (Indicate Dose Given): Lidocaine used for local infiltration of skin, Injected in 3-5ml increments after negative blood aspiration and Bupivacaine 0.25% Dose:: 15mL Additives (Indicate Dose Given): None Ultrasound: Used to caleb site Nerve Stimulator: Supplement to Ultrasound use and No twitch or parasthesia noted < 0.5 mA Paresthesia: None Procedure Tolerated: No Complications Procedure Outcome: Successful Performed By: Shea Hollingsworth
--- NOTE | 2023-07-25 10:31 | ROE_ITS ---
Date of service: 07/25/23 Time of Service: 09:30 Operative Note Operative Note DATE OF PROCEDURE: 07/25/23 PRE-OP DIAGNOSIS: Left Knee Osteoarthritis POST-OP DIAGNOSIS: same PROCEDURE: Left Total Knee Replacement SURGEON: Jose Canela STORAGE GARAGE MANAGER: Kristin Parsons ANESTHESIA TYPE: Spinal Refer to Anesthesia Record ESTIMATED BLOOD LOSS: 100 PATHOLOGY: none sent TOURNIQUET TIME: 0 COMPLICATIONS: None Patient was transported to: PACU Patient's condition: stable Implants: 1. Depuy Attune Cementless Cruciate Retaining Femoral Component, Size 5 2. Depuy Attune Cementless Fixed Bearing Tibial Component, Size 4 3. Depuy Attune 5x10 CR/FB Poly 4. Depuy Attune Patellar Component, Size 35 Indications: I have seen Jimena in clinic for symptoms of knee arthritis, confirmed with radiographic findings. She has exhausted nonoperative methods and was having significant limitations in daily function and desired better function and less pain. I discussed the technical details of a knee replacement. I explained the risks of the procedure to include, but not limited to, bleeding, infection, pain, stiffness, fracture, damage to nerves and vessels, damage to muscles and tendons, loosening, need for repeat procedure, blood clot and cardiopulmonary demise. Despite these risks, Jmiena elected to proceed. Findings: There was significant signs of arthritis throughout the knee with large osteophytes throughout, focused medially. Procedure Description: Jimena was greeted in the preoperative holding area where the correct side was identified and marked. The consent was reviewed with the patient and signed. The history and physical was updated. All questions were answered. Preoperative medications were administered: Acetaminophen 1000mg, Celebrex 40 0mg, and Gabapentin 300mg. An adductor canal block was then administered by the anesthesia team in the PACU. Jimena was taken back to the operating room. A spinal anesthestic was then administered. The patient was placed into the supine position on the operating room table. A nonsterile tourniquet was placed high onto the leg but only used for cementing. Posts were placed for positioning during the procedure. All bony prominences were well padded. Prophylactic antibiotics in the form of Cefazolin were administered. 1g of Tranxemic Acid was given intravenously within 30 minutes of incision. The left leg was then prepped with Chloraprep and draped in a standard fashion with impervious stockinette. A second prep with Chloraprep was performed prior to application of Iodine impregnated skin protection. A timeout to confirm correct identity, side and site, procedure, allergies, anesthesia, and medical concerns was performed. With the knee in some flexion, a midline incision was made overlying the knee. Full thickness skin flaps were raised once the extensor mechanism was encountered. These were raised medially and laterally. Any bleeding was controlled with electrocautery. Once the extensor mechanism was fully exposed, a medial parapatellar arthrotomy was performed in a flexed position. All bleeding from the arthrotomy and the geniculate arteries was coagulated. A medial subperiosteal peel was performed with electrocautery to the midcoronal plane. Due to the significant varus deformity the entire medial tibial plateau was exposed. The fat pad was removed while keeping the patellar tendon protected. The anterior distal femur synovium was removed for later visualization. The ACL and PCL were resected and the anterior horn of the lateral meniscus was transected. The knee was then flexed with the patella everted. Large osteophytes from the tibia were removed. Large osteophytes from the femur were removed. Using a step drill, and based on preoperative templating, the femoral canal was entered. This was done with a step drill without any difficulty. The intramedullary distal femoral cut guide was inserted, set to a 5 degree valgus cut and 9mm cut thickness. The distal femoral cut guide was then held in position and pinned. With the soft tissues protected, the distal cut was performed. This was passed over a few times to ensure a planar cut. I then turned attention to the tibia. The extramedullary guide was placed onto the leg. The distal aspect was slid medial to adjust for position of center of ankle and stay in line with shaft of the tibia, erring slightly laterally to place the tibia in 1-2 degrees of varus. Approximately 5 degrees of posterior slope was kept in the proximal cutting guide. The center of the guide was aligned with the PCL. The stylus was used to assess cut thickness. The medial side, most involved side, was set for a 4mm cut. This was then held in position and pinned into place with 2 additional pins and a cross pin for stability. The medial and lateral collateral ligaments were protected and the cut was performed. With this completed, it was assessed and noted to be of appropriate dimensions. The guide was removed. A spacer block was inserted and the knee was brought into extension. The 10mm spacer block provided full extension, without hyperextension and with stability of both the medial and lateral collateral ligaments was assessed. The pins from the femur and the tibia were then removed. The distal femur was then sized. The anterior stylus was placed onto the lateral ridge of the anterior femur. This indicated a size 5 femur. The external rotation of the guide was adjusted to 0 degrees to match the epicondylar axis, perpendicular to Pilar?s line. The 4-in-1 cutting guide was the placed. The posterior medial femur cut was evaluated and appeared of good thickness. The spacer block was inserted underneath the cutting guide and stability was confirmed in 90 degrees of flexion. An emmy wing was used to confirm appropriate position of the anterior cut to avoid notching. This cutting guide was ensured to be flush on the cut surface and then pinned into place with headed pins. While protecting the soft tissues, quad tendon, and collateral ligaments, the anterior and posterior cuts were performed with a saw. The central two pins were removed and the posterior and anterior chamfers were cut next. The notch-cutting guide was placed. This was pinned to lateralize the femoral component as much as possible while keeping it flush on the cut surface. This was then pinned into position. A reciprocating saw was used to make the notch cut. A rasp smoothed the cut surfaces. The medial and lateral menisci were removed. A trial femoral component was then inserted, impacted down to the cut surfaces, and the lug holes were drilled. A provisional trial tibial component was placed and the knee was brought through range of motion. There was noted to be excellent extension and flexion. There was no significant instability. The patella was tracking without thumbs. A size 10mm polyethylene component provided the best range of motion and stability with less than 2mm gapping with medial and lateral stress and full extension without significant hyperextension. The tibial cut surface was fully exposed. The tibia was then sized as a 4. The tibia had been previously marked during trialing to correspond to the center of the tibial component to help with rotation. The trial was aligned to this caleb, approximately rotated to the medial 1/3rd of the tibial tubercle. The trial was pinned into place. The tibia was prepared with a reamer and a keel punch and lug holes. The knee was then brought into extension and the patella was measured as 21mm. Using the patellar clamp and cut guide, this was resected to a flat surface with at least 12mm of thickness remaining. The size 35 patella fit the best. This was oriented and then clamped into position. The lugs were drilled. The trial components were removed. The final components were opened on the back table. The periosteal and capsular tissues, especially posteriorly, around the knee were then systematically injected with a periarticular cocktail consisting of 246mg of Ropivacaine, 0.5mg of Epinephrine, 0.08mg of Clonidine, and 30mg of Ketorolac, diluted to 100cc. On the back table, with the implants opened, the cement was mixed. One batch of high viscosity cement was prepared with vacuum assistance. After the cement was ready a small amount was placed on the cut surface of the patella and the patellar button was clamped into position and held. While the cement was hardening, the cementless knee components were placed. Starting with the tibial component, the tibia was subluxed anteriorly and the lug holes of the component were lined up. The tibia was then impacted with an impactor and mallet until the tibial component was in contact with the tibia. The final polyethylene component was inserted. Then, the femoral component was inserted. The lug holes were aligned and the component was impacted into position. The knee was irrigated with Irrisept chlorhexadine solution. This was allowed to sit in the knee for 3 minutes and then it was irrigated out with saline. After the cement had finally cured, approximately 15min, the clamp was removed f rom the patella and the knee was taken through range of motion. The patella was tracking with a no-thumbs technique. The trial poly was removed and the real component inserted. The capsule was then reapproximated with a No. 1 Vicryl at multiple locations. The capsule was finally closed with a No. 2 Stratafix, barbed suture. The second dosing of 1g TXA was started. Deep tissues were then reapproximated with 0 Vicryl and 2-0 Vicryl. The skin was closed with a running 3-0 Monocryl in a subcuticular fashion. This was reinforced with skin glue. A Mepilex silver dressing was applied along with a [id number]-bu-[id number] MÓNICA wrap. A CryoCuff was applied. Jimena was transferred to the hospital bed without difficulty an suffering no apparent complication. Jimena has a good prognosis. Physical therapy will start today and without restrictions, weight-bearing as tolerated. Aspirin 81mg BID will be used for DVT prophylaxis.
--- NOTE | 2023-07-25 12:55 | PT.INIE ---
PT Notes Visit Reasons: Left knee DJD Physical Therapy Day Surgery Initial Evaluation Date: 07/25/2023 Referring Doctor: AGATHA Dill PT Orders: PT CONSULT: 'S/P Ortho Surgery Precautions: WBAT on the L LE with AD. Patient Profile/Admitting Diagnosis: Gemma is a 73-year-old female with degenerative joint disease of the left hand status post left total knee arthroplasty on postoperative day 0. PMHX: Medical History (Updated 07/17/23 @ 12:58 by Kristin Parsons) Lupus per pt. 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 Independent with all aspects of ADLs pror to surgery. 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 Likes to [employer]. Equipment Owned/DME: None Subjective: 1/10 pain in L knee. Amazed at how much better she is able to move without pain. Objective: General Observation: Resting in bed. MÓNICA wraps to left LE. Cryocuff to left knee. Mental Status: Alert and oriented x 4 Pain: As above ROM: Right Lower Extremity: Hip flexion WFL. Hip abduction WFL. Knee flexion WFL. Ankle dorsiflexion WFL. Ankle plantarflexion WFL. Left Lower Extremity: Hip flexion WFL. Hip abduction WFL. Knee flexion 0-100 degrees. Ankle dorsiflexion WFL. Ankle plantarflexion WFL. Right Upper Right Lower Extremity: Hip flexors 5/5. Hip abductors 5/5. Knee flexors 5/5. Knee extensors 5/5. Ankle dorsiflexors 5/5. Ankle plantarflexors 5/5. Left Lower Extremity:Hip flexors 4/5. Hip abductors 4/5. Knee flexors 3-/5. Knee extensors 4-/5. Ankle dorsiflexors 5/5. Ankle plantarflexors 5/5. Sensation: Intact as to pain and pressure in B LE Bed Mobility/Transfers: Minimal verbal cueing provided for use of B UE for support and for correct movement sequence Supine to sit stand by assist Sit to stand stand by assist using FWW Stand to sit stand by assist using FWW Bed to chair stand by assist using FWW Gait: Facilitated safe and correct sequence with level surface ambulation using the FWW with minimal verbal cues for AD management, limb advancement, and overall safety covering a distance of 150 feet with step to heel-toe gait pattern requiring only stand by assist. Stairs: Guided patient with safe negotiation of 6 x 4-inch steps and 4 x 6-inch steps while holding onto B rails for support while holding onto B rails for support with step-to gait pattern requiring minimal verbal cueing correct movement sequence. Balance: Static Sitting: Normal Dynamic Sitting: Normal Static Standing: Fair Dynamic Standing: Fair Special Tests: Mobility Limitations Standardized Measure [facility] AM-PAC 6 clicks Basic Mobility Inpatient Short Form: Raw Score: 24 CMS Score: 0% deificit Informed Consent/Education: Patient instructed in purpose of PT consult. Packet containing TKA exercise protocol has been given to patient. Education and training on initial set of exercises that can be done at home have been completed with patient. Trained patient with correct performance of exercises below to maximize motor control, joint flexibility, soft tissue extensibility of the L knee musculature: Access Code: [email or web address] URL: [email or web address] Date: 07/25/2023 Prepared by: Anita Boone Exercises - Supine Quad Set - 1 x daily - 7 x weekly - 1 sets - 10 reps - 5 hold - Supine Heel Slide - 1 x daily - 7 x weekly - 1 sets - 10 reps - 5 hold - Supine Ankle Pumps - 1 x daily - 7 x weekly - 1 sets - 10 reps - 5 hold - Small Range Straight Leg Raise - 1 x daily - 7 x weekly - 1 sets - 10 reps - 5 hold - Seated March - 1 x daily - 7 x weekly - 1 sets - 10 reps - 5 hold Assessment: Jimena requires the use of a front-wheeled walker for all mobility ADL performance to maximize independence and reduce fall risk. Patient presents with clinical signs and symptoms consistent with current/admitting diagnoses that have resulted to mobility limitations, gait instability, generalized weakness, and impairment of motor control as demonstrated by the following impairment level findings: 1. Decreased strength to left knee major muscle groups 2. Impaired standing balance 3. Limitation of joint range of motion in left knee Impairments are contributing to the following functional limitations: 1. Inability to safely ambulate without assistive device 2. Increase completion time for mobility ADL performance 3. Increased fall risk Patient is assessed as a 39946 moderate complexity based on the following: History: 73-year-old female with impairment level findings, functional limitations, and past medical history as indicated above Examination: Demonstrable impairment in strength, balance, and mobility level with underlying impairments and functional limitations as documented above Presentation: Evolving Decision Makin moderate complexity Goals: N/A. PT evaluation and 1-2 treatment sessions only for functional mobility training using recommended AD and for HEP instruction. Plan of Care/Treatment Plan: N/A. PT evaluation and 1-2 treatment session only for functional mobility training using recommended AD and for HEP instruction. DISCHARGE RECOMMENDATIONS: Home when medically cleared by orthopedic surgeon. Recommend outpatient PT services in order to optimize functional mobility outcomes and facilitate return to independent community ambulation without an assistive device. TREATMENT CODE/TIME: 42579 x 26 minutes for 1 unit beginning at 12:55 PM. Thank you for the opportunity to participate in the care of this patient. Anita Boone PT, DPT, CLT [facility] [place], [place]
--- NOTE | 2023-07-25 14:39 | W.ANESPOSTOP ---
Postoperative Evaluation Date, Time and Location Date Performed: 07/25/23 Time Performed: 14:12 Patient Location: Day Surgery Unit Vital Signs Most Recent Imported Vital Signs: Most Recent Vital Signs Temp Pulse Resp BP Pulse Ox 36.4 C L 79 16 141/56 H 96 07/25/23 12:51 07/25/23 12:51 07/25/23 12:51 07/25/23 12:51 07/25/23 12:51 Pain Score Most Recent Pain Score: Most Recent Pain Score Pain Level 0 07/25/23 12:51 Assessment Mental Status: Awake (Alert & Oriented to Patient Baseline) Airway and Respiratory Function: Patent airway with normal (patient baseline) respiratory exam Cardiovascular Function: Hemodynamically Stable Hydration Status: Adequately Hydrated Nausea & Vomiting: No Nausea or Vomiting Pain: Pt. Denies Any Pain Peripheral Nerve Block: Regional nerve block not resolved at time of post operative discharge
== END 2023-07-25 14:25 | disposition home or self-care (01) ==
PROVIDERS: PCP Nurse Practitioner Family; Visit Provider Student in an Organized Health Care Education/Training Program
PROC: (CPT 27447; principal; 2023-07-25 09:30)
DX: M17.12 Unilateral primary osteoarthritis, left knee (principal); J45.909 Unspecified asthma, uncomplicated; E78.00 Pure hypercholesterolemia, unspecified; I10 Essential (primary) hypertension; E55.9 Vitamin D deficiency, unspecified; I65.22 Occlusion and stenosis of left carotid artery
CPT/HCPCS: 27447; C1776; 76942; 97162; J0690; J2371; J2405; J2704

== ENCOUNTER 2023-08-07 15:07 | Outpatient (CLI) | payer MEDICARE, SELFPAY ==
--- NOTE | 2023-08-07 12:45 | DI.RAD_ITS ---
Exam(s) XR KNEE LT 1V EXAM: XR KNEE LT 1V CLINICAL HISTORY: 1st post op TKA. TECHNIQUE: 2D digital imaging was performed. COMPARISON: DX XR KNEE LEFT 4 OR MORE VIEWS from 02/21/2023 CR XR STANDING ALIGNMENT from 08/07/2023 FINDINGS: Two views Position alignment of the components of the recently placed left knee prosthesis are satisfactory. N o fracture or loosening evident. IMPRESSION: Satisfactory appearance DATA REPOSITORY: RADIATION DOSE DELIVERED:
--- NOTE | 2023-08-07 12:45 | DI.RAD_ITS ---
Exam(s) XR STANDING ALIGNMENT EXAM: XR STANDING ALIGNMENT CLINICAL HISTORY: 1ST POST OP L TKA. TECHNIQUE: 2D digital imaging was performed. COMPARISON: CR XR STANDING ALIGNMENT from 07/17/2023 FINDINGS: 3 views There has been interval left knee arthroplasty. Appears satisfactory. [id number] narrowing of the medial compartment of the opposite-right knee is again noted. The late ral compartment maintains normal height. Some Verus deformity evident. Hips appear unremarkable with no evidence of joint space narrowing, however, the left hip joint is ag ain noted be significantly higher than the right hip joint by approximately 2.4 cm. Ankles unremarkable. Bone density normal. No osseous lesions. IMPRESSION: Satisfactory appearance left knee prosthesis. [id number] narrowing of the medial compartment of the opposite-right knee. Other findings as above. DATA REPOSITORY: RADIATION DOSE DELIVERED:
== END 2023-08-07 15:08 | disposition home or self-care (01) ==
LOC: DIORS 15:08
PROVIDERS: PCP Nurse Practitioner Family; Referring Provider Nurse Practitioner Family; Visit Provider Student in an Organized Health Care Education/Training Program
DX: Z96.652 Presence of left artificial knee joint (principal); Z47.1 Aftercare following joint replacement surgery
CPT/HCPCS: 73560; 77073

== ENCOUNTER → 2023-09-05 12:41 | Outpatient (BNVA) | payer MEDICARE, SELFPAY | PROVIDERS: PCP Nurse Practitioner Family; Referring Provider Nurse Practitioner Family | DX: Z47.1 Aftercare following joint replacement surgery (principal); Z96.652 Presence of left artificial knee joint ==

== ENCOUNTER → 2023-12-28 08:53 | Outpatient (CLI) | payer MEDICARE, SELFPAY ==
--- NOTE | 2023-12-28 | DI.RAD_ITS ---
Exam(s) XR KNEE RT 3V AP,LAT,MARISOL EXAM: XR KNEE RT 3V AP,LAT,MARISOL CLINICAL HISTORY: PAIN OF R KNEE, M25.561. TECHNIQUE: 2D digital imaging was performed of the right knee. Three views obtained. Merchant, AP, l ateral and PA tunnel views were obtained. COMPARISON: CR XR STANDING ALIGNMENT from 08/07/2023 FINDINGS: BONES: No acute fracture is present. No bony destructive lesion is seen. JOINTS: There is marked narrowing of the medial femoral tibial joint with [id number] present. Ther e is also marked narrowing of the patellofemoral joint. Osteophytes are seen involving all 3 joint c ompartments. There is a small joint effusion. SOFT TISSUE: Vascular calcifications are present. IMPRESSION: Marked osteoarthritis of the right knee. DATA REPOSITORY: RADIATION DOSE DELIVERED:
== END ==
PROVIDERS: PCP Nurse Practitioner Family; Visit Provider Nurse Practitioner Family
DX: M25.561 Pain in right knee (principal); M17.11 Unilateral primary osteoarthritis, right knee
CPT/HCPCS: 73562

== ENCOUNTER → 2024-02-12 13:35 | Outpatient (BNVA) | payer MEDICARE, SELFPAY | PROVIDERS: PCP Nurse Practitioner Family; Referring Provider Nurse Practitioner Family; Visit Provider Student in an Organized Health Care Education/Training Program | DX: M17.11 Unilateral primary osteoarthritis, right knee (principal) | CPT/HCPCS: 99213 ==

== ENCOUNTER 2024-05-28 18:50 | Outpatient (REF) | payer MEDICARE, SELFPAY ==
[2024-05-28 21:31] LABS: HCT 36.7 % (36.0-46.0); HGB 12.4 g/dL (11.2-15.7); MCH 30.9 pg (27.0-33.0); MCHC 33.8 % (32.0-36.0); MCV 92 fL (80-95); MPV 10.3 fL (8.0-11.0); Platelet Count 303 10^3/uL (130-400); RBC 4.01 10^6/uL (3.93-5.22); RDW 12.9 % (11.7-14.6); RDW-SD 42.5 fL; WBC 6.49 10^3/uL (4.4-10.8)
[2024-05-28 21:43] LABS: ALT 15 U/L (14-59); AST 26 U/L (15-37); Alkaline Phosphatase 77 U/L (46-116); BUN 28 mg/dL (7-18); Bilirubin, Total 0.36 mg/dL (0.2-1.0); Calcium 9.9 mg/dL (8.5-10.1); Chloride 97 mmol/L (98-107); Estimated GFR 58.75 (mL/min/1.73m2); Glucose 85 mg/dL (74-106); Potassium 4.8 mmol/L (3.5-5.1); Sodium 134 mmol/L (136-145); Total Protein 7.4 g/dL (6.4-8.2)
== END 2024-05-28 18:51 | disposition home or self-care (01) ==
LOC: NCHCN 18:50
PROVIDERS: PCP Nurse Practitioner Family; Visit Provider Nurse Practitioner Family
DX: Z01.818 Encounter for other preprocedural examination (principal)
CPT/HCPCS: 80053; 85027

== ENCOUNTER 2024-06-12 06:07 | Day surgery (SDC) | payer MEDICARE, SELFPAY ==
[2024-06-12] VITALS (13 sets, daily range): BP systolic 117–166; BP diastolic 38–105; PULSE 68–86; RESP 10–21; TEMP 36.3–36.6; O2SAT 94–97; BMI 25.8
[2024-06-12] MEDS: Gabapentin 300 MG CAP PO (06:20)
[2024-06-12] MEDS: Acetaminophen 500 MG TAB 1000 MG PO (06:20)
[2024-06-12] MEDS: Lactated Ringers 1,000 ML 80 ML IV (06:26)
--- NOTE | 2024-06-12 06:54 | ANES.PREOP_ITS ---
General Info Date of Service Date Performed: 06/12/24 Height: 4 ft 11 in Weight: 58 kg Body Mass Index (BMI): 25.8 Surgical Procedure: Operation Date: 06/12/24 07:40 Proposed Procedure Side Surgeon p Knee Total Arthroplasty Right Jose Canela MD Meds Allergies and Home Medications Allergies Allergy/AdvReac Type Severity Reaction Status Date / Time Sulfa (Sulfonamide Allergy Severe Anaphylaxsi Verified 06/12/24 06:36 Antibiotics) s lisinopril AdvReac Intermediate Other (See Verified 06/12/24 06:36 Comment) Penicillins AdvReac Mild rash Verified 06/12/24 06:36 Home Medication ?Medication ?Instructions ?Recorded ProAir HFA 90 mcg/actuation 2 puff inhalation Q4H PRN 03/20/18 aerosol inhaler (albuterol sulfate) cholecalciferol (vitamin D3) 25 1,000 unit PO DAILY 05/07/19 mcg (1,000 unit) capsule hydroxychloroquine 200 mg tablet 200 mg PO DAILY 11/19/21 amlodipine 5 mg tablet 5 mg PO DAILY 07/17/23 acetaminophen 500 mg tablet 1,000 mg (2 x 500 mg) PO TID #90 06/12/24 tabs aspirin 81 mg tablet,delayed 81 mg PO BID #60 tabs 06/12/24 release dexamethasone 4 mg tablet 4 mg PO DAILY #2 tabs 06/12/24 gabapentin 300 mg capsule 300 mg PO QHS #14 caps 06/12/24 meloxicam 15 mg tablet 15 mg PO DAILY #30 tabs 06/12/24 oxycodone 5 mg tablet 5 mg PO Q4H PRN pain #20 tabs 06/12/24 pantoprazole 40 mg tablet,delayed 40 mg PO DAILY #30 tabs 06/12/24 release Current Visit Medications: Current Medications Generic Name Dose Route Start Last Admin Trade Name Freq PRN Reason Stop Dose Admin Acetaminophen 1,000 mg 06/12/24 06:00 06/12/24 06:20 Acetaminophen 500 Mg Tab PO 06/12/24 23:59 1,000 mg PREOP MERY Administration Gabapentin 300 mg 06/12/24 06:00 06/12/24 06:20 Gabapentin 300 Mg Cap PO 06/12/24 23:59 300 mg PREOP MERY Administration Ringer's Solution 1,000 mls @ 80 mls/hr 06/12/24 06:00 06/12/24 06:26 IV 06/12/24 23:59 80 mls/hr INFUSION MERY Administration Cefazolin Sodium/Dextrose 2 gm in 50 mls @ 100 mls/hr 06/12/24 06:00 Ancef Duplex IVPB 06/12/24 23:59 PREOP MERY Tranexamic Acid/Sodium Chloride 1,000 mg in 100 mls @ 600 mls/hr 06/12/24 06:00 IVPB 06/12/24 23:59 PREOP MERY IV Miscellaneous Supplies 1 each 06/12/24 06:00 Iv Access IV 06/12/24 23:59 DIRECTED MERY Meloxicam 7.5 mg 06/12/24 06:00 Meloxicam 15 Mg Tab PO 06/12/24 23:59 PREOP MERY Sodium Chloride 0 ml 06/12/24 06:00 Normal Saline Flush 10 Ml Syr IV 06/12/24 23:59 PRN PRN Sodium Chloride 0 ml 06/12/24 06:00 Normal Saline 10 Ml Vial IJ 06/12/24 23:59 DIRECTED PRN Sterile Water 0 ml 06/12/24 06:00 Water,Injection,Sterile 10 Ml Vial IJ 06/12/24 23:59 DIRECTED PRN PFSH Active Problems Active Problems: Problem Status Onset Code Osteoarthritis of right knee Acute M17.11 Mass of left lower leg Acute R22.42 Hypertension Chronic I10 Carotid stenosis, left Chronic I65.22 Vitamin D deficiency disease Acute E55.9 Medical History Medical History White coat syndrome with hypertension 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 Asthma Osteoarthritis Hypercholesterolemia Seasonal allergies Carotid artery stenosis Medical History Comments:: Per pt. states when she had general anesthesia with her wrist, she was cloudy for 3 weeks, and BP went aarti high intra-op. 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---DOS 11/23/21 Osteoarthritis of carpometacarpal (CMC) joint of right thumb s/p trapezial arthroplasty: 05/15/2019 History of lumpectomy of both breasts Hx of section Hx of tubal ligation Tobacco Smoking/Tobacco Use Status: Former Tobacco Use Alcohol Alcohol Intake: current Alcohol intake frequency: 0-2 drinks per day Alcohol type: wine Substance Use Substance use: Never Substance use type: does not use Details: 1 glass of wine with dinner 06/11/24 Vital Signs and Lab Results Vital Signs Most Recent Vital Signs in EMR: Most Recent Vital Signs Temp Pulse Resp BP Pulse Ox 36.6 C 86 16 162/105 H 96 06/12/24 06:13 06/12/24 06:13 06/12/24 06:13 06/12/24 06:13 06/12/24 06:13 Lab Results Blood Type / Crossmatch: No Data to Display Complete Blood Count: White Blood Count 6.49 10^3/uL (4.4-10.8) 05/28/24 15:43 Red Blood Count 4.01 10^6/uL (3.93-5.22) 05/28/24 15:43 Hemoglobin 12.4 g/dL (11.2-15.7) 05/28/24 15:43 Hematocrit 36.7 % (36.0-46.0) 05/28/24 15:43 Platelet Count 303 10^3/uL (130-400) 05/28/24 15:43 Complete Metabolic Panel: Sodium 134 mmol/L (136-145) L 05/28/24 15:43 Potassium 4.8 mmol/L (3.5-5.1) 05/28/24 15:43 Chloride 97 mmol/L (98-107) L 05/28/24 15:43 Carbon Dioxide 28.0 mmol/L (21.0-32.0) 05/28/24 15:43 BUN 28 mg/dL (7-18) H 05/28/24 15:43 Creatinine 1.0 mg/dL (0.55-1.02) 05/28/24 15:43 Est GFR (CKD-EPI 2020) 58.75 (mL/min/1.73m2) 05/28/24 15:43 Calcium 9.9 mg/dL (8.5-10.1) 05/28/24 15:43 Albumin 4.0 g/dL (3.4-5.0) 05/28/24 15:43 Glucose 85 mg/dL (74-106) 05/28/24 15:43 Liver Function Panel: Alanine Aminotransferase (ALT/SGPT) 15 U/L (14-59) 05/28/24 15: 43 Aspartate Amino Transf (AST/SGOT) 26 U/L (15-37) 05/28/24 15:43 Coagulation Panel: No Data to Display Cardiac Panel: No Data to Display Arterial Blood Gas: No Data to Display Venous Blood Gas: No Data to Display Pancreas Panel: No Data to Display Thyroid Panel: No Data to Display Infectious Disease: No Data to Display Blood Cultures: No Data to Display Toxicology Panel: No Data to Display Imaging and Studies Imaging and Studies Study information below may be from another EMR and interpreted by another provider. Please see original notes in EMR for more complete details. Echocardiogram Summary: 07/01/20: Conclusion Left Ventricle : The left ventricle is normal size. The left ventricular systolic function is normal. The left ventricular ejection fraction is within the normal range. There is normal left ventricular wall thickness. There is normal LV segmental wall motion. The left ventricular diastolic function is normal. LVEF is 55%. Right Ventricle : The right ventricle is normal size. The right ventricular systolic function is normal. Atria : The left atrium size is normal. The right atrium size is normal. Mitral Valve : Mild mitral annular calcification. Mild mitral regurgitation. No evidence of mitral valve stenosis. Tricuspid Valve : The tricuspid valve is normal in structure. Trace tricuspid regurgitation. Unable to assess PA pressure. There is no tricuspid valve stenosis. Great Vessels : The aortic root is normal in size. The ascending aorta is mildly dilated. Aortic arch is not well visualized. IVC is normal in size and collapses >50% with inspiration. There is no prior study available for comparison. Carotid Artery Summary:: 10/15/2018: CAROTID ULTRASOUND: There is a mild amount of calcific plaque in the right common carotid bulb. The velocity measurements in the right internal carotid artery are in the normal ran ge, consistent with mild stenosis. The left common carotid bulb shows a moderate quantity of calcific plaque. There is velocity elevation in the proximal left internal carotid artery consistent with a 50-60% stenosis. The right vertebral artery shows antegrade flow. Bi-directional flow is noted in the left vertebral artery. IMPRESSION: Moderate stenosis of 50-60% in the proximal left internal carotid artery. Anesthesia Assessment and Plan Anesthesia History Personal History: Other Family History: No Family History of Anesthesia Complications Exercise Tolerance Exercise Tolerance: Metabolic Equivalents>4 Pertinent Negatives Pertinent Negatives: No Symptoms of GERD, No Major Cardiovascular Symptoms or Complaints, No Major Pulmonary Symptoms or Complaints and No History of CVA/TIA Cardiac & Pulmonary Exam Cardiac Exam: Normal S1/S2 Heart Sounds Pulmonary Exam: Clear Bilateral Breath Sounds Implantable Cardiac Device Does patient have a Pacemaker or an ICD?: No Airway Exam Known Difficult Airway: No Mallampati Class: 3 Mouth Opening: Narrow (< 3cm) Thyromental Distance: Greater than 3 cm Neck Range of Motion: Full ROM Neck Circumference: Normal Teeth Condition: Normal Dentition ASA Classification ASA Score: ASA 2 Emergency Case?: No NPO Status NPO Status: NPO Clears >2 hours, Solids >8 hours Anesthesia Plan Resuscitation Status: Full Code Anesthesia Technique: Spinal Anesthesia Airway Planned: Natural Airway Pain Management: Surgeon and patient request nerve block Monitors Used: Standard Monitors
[2024-06-12] MEDS: MELOXICAM 7.5 MG TAB PO (07:08)
--- NOTE | 2024-06-12 07:18 | PDOC.DSDIS_ITS ---
Date of service: 06/12/24 Time of Service: 07:18 Discharge Plan Disposition Patient Disposition: Home Condition: Good Discharge Details Reason For Visit: R TKR Attending Provider: Jose Canela Primary Care Provider: Daisy Werner Home Meds and New Rx's Prescriptions: New aspirin 81 mg tablet,delayed release (DR/EC) 81 mg PO BID Qty: 60 0RF acetaminophen 500 mg tablet 1,000 mg PO TID Qty: 90 3RF pantoprazole 40 mg tablet,delayed release (DR/EC) 40 mg PO DAILY Qty: 30 0RF dexamethasone 4 mg tablet 4 mg PO DAILY Qty: 2 0RF gabapentin 300 mg capsule 300 mg PO QHS Qty: 14 0RF oxycodone 5 mg tablet 5 mg PO Q4H MDD 6 tabs PRN (Reason: pain) Qty: 20 0RF meloxicam 15 mg tablet 15 mg PO DAILY Qty: 30 2RF Continued hydroxychloroquine 200 mg tablet 200 mg PO DAILY cholecalciferol (vitamin D3) 1,000 unit capsule 1,000 unit PO DAILY amlodipine 5 mg tablet 5 mg PO DAILY albuterol sulfate [ProAir HFA] 8.5 GM HFA aerosol inhaler 2 puff Inhalation Q4H PRN Discontinued acetaminophen 500 mg tablet 1,000 mg PO Q8H PRN Qty: 90 0RF Rx Instructions: Take two tablets up to every 8 hours as needed for pain aspirin 81 mg capsule 81 mg PO DAILY Discharge Instructions Additional Instructions: Total Knee Discharge Instructions Activity: The most important activity is to walk and to work on gentle motion (both flexion and extension). You should try to take short walks a few times a day. It is important that when resting you work on keeping the knee straight. Avoid putting a pillow behind the knee as this will encourage flexion. Work on range of motion exercises as provided by Physical Therapy. - Start outpatient physical therapy within 2 weeks. - You should wear the KASI hose on both legs for 2 weeks. You may remove these at night. You may also use any compression sock in place of the KASI hose. - Utilize [employer] to review exercises, see videos on exercises and obtain basic information pertaining to your surgery and your recovery. Dressing: Remove the Sushil wrap by 2 days after your surgery and put on the KASI stocking given to you from the hospital. Keep the surgical dressing (underneath the SUSHIL wrap) in place for at least one week. After the first week it may be removed and replaced with light gauze and tape or nothing. The wound and dressing may get wet after 3 days but avoid soaking the dressing or otherwise it will need to be changed. Many people prefer covering the dressing with cling wrap (saran wrap) to minimize it from getting soaked. If it gets wet, just pat dry. If it starts to peel off then it will need to be changed. Medications: - You should take Tylenol and anti-inflammatory meloxicam as your primary pain control medications. If the Celebrex is too expensive or not covered, please call the office for another alternative (Advil/Ibuprofen or Naproxen/Aleve) - You have been prescribed a stronger pain medication Oxycodone for breakthrough pain, take as needed as prescribed. - You have also been prescribed a stomach acid reduction agent Pantoprozole to help reduce stomach acid and reflux. - You have been prescribed Gabapentin to take at night for restlessness and nerve pain. - You will be taking Aspirin 81mg twice a day for DVT prevention unless instructed otherwise. - You have also been prescribed Decadron to take to control post-operative nausea and pain. You will start this tomorrow. - If you have constipation you should take Colace or Miralax (both [id number]). It takes most people 3-4 days to have a bowel movement. Follow-up: 2 weeks If you have any acute concerns or questions, please do not hesitate to contact the office at [phone]. You may contact Dr. Canela with any questions after hours through the hospital at [phone] or on his cell phone at [phone]. Stand Alone Forms: Anesthesia Discharge Inst., Anderson Campos (DSU) Referrals: Jose Canela MD [ [facility] STAFF PHYSICIAN] - 06/27/24 11:00 am Equipment/Supplies: Walker Activity:: Activity as Tolerated Shower/Bathe:: 72 hours Diet:: As Tolerated Discharge Orders Discharge Orders: Discharge Order (Routine); Ordered 06/12/24 Ordered By: Amanuel Arellano DS: Diagnosis Discharge Diagnosis (1) Osteoarthritis of right knee: Status: Acute
[2024-06-12] MEDS: ceFAZolin 2 GM/50 ML BAG IVPB (08:02)
[2024-06-12] MEDS: TRANEXAMIC ACID/SOD. CHL. 1,000 MG/100 ML BAG 600 MG IVPB (08:08)
--- NOTE | 2024-06-12 09:35 | ROE_ITS ---
Date of service: 06/12/24 Time of Service: 07:50 Operative Note Operative Note DATE OF PROCEDURE: 06/12/24 PRE-OP DIAGNOSIS: Right Knee Osteoarthritis POST-OP DIAGNOSIS: same PROCEDURE: Right Total Knee Replacement SURGEON: Jose Canela BARREL RIFLER BUTTON: Caleb Arellano ANESTHESIA TYPE: Spinal Refer to Anesthesia Record ESTIMATED BLOOD LOSS: 50 PATHOLOGY: none sent TOURNIQUET TIME: 0 COMPLICATIONS: None Patient was transported to: PACU Patient's condition: stable Implants: 1. Depuy Attune Cementless Cruciate Retaining Femoral Component, Size 5 2. Depuy Attune Cementless Fixed Bearing Tibial Component, Size 4 3. Depuy Attune 5x8 CR/FB Poly 4. Depuy Attune Patellar Component, Size 35 Indications: I have seen Gemma in clinic for symptoms of knee arthritis, confirmed with radiographic findings. She has exhausted nonoperative methods and was having significant limitations in daily function and desired better function and less pain. I discussed the technical details of a knee replacement. I explained the risks of the procedure to include, but not limited to, bleeding, infection, pain, stiffness, fracture, damage to nerves and vessels, damage to muscles and tendons, loosening, need for repeat procedure, blood clot and cardiopulmonary demise. Despite these risks, Gemma elected to proceed. Findings: There was significant signs of arthritis throughout the knee. Procedure Description: Gemma was greeted in the preoperative holding area where the correct side was identified and marked. The consent was reviewed with the patient and signed. The history and physical was updated. All questions were answered. Preoperative medications were administered: Acetaminophen 1000mg, Celebrex 400mg, and Gabapentin 300mg. An adductor canal block was then administered by the anesthesia team in the PACU. She was taken back to the operating room. A spinal anesthestic was then administered. The patient was placed into the supine position on the operating room table. A nonsterile tourniquet was placed high onto the leg but only used for cementing. Posts were placed for positioning during the procedure. All bony prominences were well padded. Prophylactic antibiotics in the form of Cefazolin were administered. 1g of Tranxemic Acid was given intravenously within 30 minutes of incision. The right leg was then prepped with Chloraprep and draped in a standard fashion with impervious stockinette. A second prep with Chloraprep was performed prior to application of Iodine impregnated skin protection. A timeout to confirm correct identity, side and site, procedure, allergies, anesthesia, and medical concerns was performed. With the knee in some flexion, a midline incision was made overlying the knee. Full thickness skin flaps were raised once the extensor mechanism was encountered. These were raised medially and laterally. Any bleeding was controlled with electrocautery. Once the extensor mechanism was fully exposed, a medial parapatellar arthrotomy was performed in a flexed position. All bleeding from the arthrotomy and the geniculate arteries was coagulated. A medial subperiosteal peel was performed with electrocautery to the midcoronal plane. Due to the significant varus deformity the entire medial tibial plateau was exposed. The fat pad was removed while keeping the patellar tendon protected. The anterior distal femur synovium was removed for later visualization. The ACL and PCL were resected and the anterior horn of the lateral meniscus was transected. The knee was then flexed with the patella everted. Large osteophytes from the tibia were removed. Large osteophytes from the femur were removed. Using a step drill, and based on preoperative templating, the femoral canal was entered. This was done with a step drill without any difficulty. The intramedullary distal femoral cut guide was inserted, set to a 5 degree valgus cut and 8mm cut thickness. The distal femoral cut guide was then held in position and pinned. With the soft tissues protected, the distal cut was performed. This was passed over a few times to ensure a planar cut. I then turned attention to the tibia. The extramedullary guide was placed onto the leg. The distal aspect was slid medial to adjust for position of center of ankle and stay in line with shaft of the tibia. Approximately 3-5 degrees of posterior slope was kept in the proximal cutting guide. The center of the guide was aligned with the PCL. The stylus was used to assess cut thickness. The medial side, most involved side, was set for a 3mm cut. This was then held in position and pinned into place with 2 additional pins and a cross pin for stability. The medial and lateral collateral ligaments were protected and the cut was performed. With this completed, it was assessed and noted to be of appropriate dimensions. The guide was removed. A spacer block was inserted and the knee was brought into extension. The 7mm spacer block provided full extension, without hyperextension and with stability of both the medial and lateral collateral ligaments was assessed. The pins from the femur and the tibia were then removed. The distal femur was then sized. The anterior stylus was placed onto the lateral ridge of the anterior femur. This indicated a size 5 femur. The external rotation of the guide was adjusted to 0 degrees to match the epicondylar axis, perpendicular to Chilton?s line. The 4-in-1 cutting guide was the placed. The posterior medial femur cut was evaluated and appeared of good thickness. The spacer block was inserted underneath the cutting guide and stability was confirmed in 90 degrees of flexion. An emmy wing was used to confirm appropriate position of the anterior cut to avoid notching. This cutting guide was ensured to be flush on the cut surface and then pinned into place with headed pins. While protecting the soft tissues, quad tendon, and collateral ligaments, the anterior and posterior cuts were performed with a saw. The central two pins were removed and the posterior and anterior chamfers were cut next. The notch-cutting guide was placed. This was pinned to lateralize the femoral component as much as possible while keeping it flush on the cut surface. This was then pinned into position. A reciprocating saw was used to make the notch cut. A rasp smoothed the cut surfaces. The medial and lateral menisci were removed. A trial femoral component was then inserted, impacted down to the cut surfaces, and the lug holes were drilled. A provisional trial tibial component was placed and the knee was brought through range of motion. The polyethylene was trialed until there was good flexion and extension with excellent stability to the medial and lateral collaterals. The patella was tracking without thumbs. A size 7mm polyethylene component provided the best range of motion and stability with less than 2mm gapping with medial and lateral stress and full ex tension without significant hyperextension. The tibial cut surface was fully exposed. The tibia was then sized as a 5. The tibia had been previously marked during trialing to correspond to the center of the tibial component to help with rotation. The trial was aligned to this caleb, approximately rotated to the medial 1/3rd of the tibial tubercle. The trial was pinned into place. The tibia was prepared with a reamer and a keel punch and lug holes. The knee was then brought into extension and the patella was measured as 21mm. Using the patellar clamp and cut guide, this was resected to a flat surface with at least 13mm of thickness remaining. The size 35 patella fit the best. This was oriented and then clamped into position. The lugs were drilled. The trial components were removed. The final components were opened on the back table. The periosteal and capsular tissues, especially posteriorly, around the knee were then systematically injected with a periarticular cocktail consisting of 246mg of Ropivacaine, 0.5mg of Epinephrine, 0.08mg of Clonidine, and 30mg of Ketorolac, diluted to 100cc. On the back table, with the implants opened, the cement was mixed. One batch of high viscosity cement was prepared with vacuum assistance. After the cement was ready a small amount was placed on the cut surface of the patella and the patellar button was clamped into position and held. While the cement was hardening, the cementless knee components were placed. Starting with the tibial component, the tibia was subluxed anteriorly and the lug holes of the component were lined up. The tibia was then impacted with an impactor and mallet until the tibial component was in contact with the tibia. The final polyethylene component was inserted. Then, the femoral component was inserted. The lug holes were aligned and the component was impacted into position. The knee was irrigated with Surgiphor Betadine solution. This was allowed to sit in the knee for 3 minutes and then it was irrigated out with saline. After the cement had finally cured, approximately 15min, the clamp was removed from the patella and the knee was taken through range of motion. The patella was tracking with a no-thumbs technique. The capsule was then reapproximated with a No. 1 Vicryl at multiple locations. The capsule was finally closed with a No. 2 Stratafix, barbed suture. The second dosing of 1g TXA was started. Deep tissues were then reapproximated with 0 Vicryl and 2-0 Vicryl. The skin was closed with a running 3-0 Monocryl in a subcuticular fashion. This was reinforced with skin glue. A Mepilex silver dressing was applied along with a [id number] MÓNICA wrap. A CryoCuff was applied. Gemma was transferred to the hospital bed without difficulty an suffering no apparent complication. She has a good prognosis. Physical therapy will start today and without restrictions, weight-bearing as tolerated. Aspirin 81mg BID will be used for DVT prophylaxis.
--- NOTE | 2024-06-12 10:29 | PT.INIE ---
PT Notes Visit Reasons: R TKR Physical Therapy Day Surgery Initial Evaluation Date: 06/12/2024 Referring Doctor: AGATHA Chambers PT Orders: PT CONSULT: S/P Ortho Surgery Precautions: WBAT on the right LE with AD. Patient Profile/Admitting Diagnosis: Gemma is a 74-year-old female with degenerative joint disease of the right knee status post right total knee arthroplasty on postoperative day 0. PMHX: Medical History (Updated 02/12/24 @ 14:01 by AGATHA Franco) White coat syndrome with hypertension 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 Independent with all aspects of ADLs prior to surgery. Equipment Owned/DME: [facility] Subjective: Cramping R leg that subsided during mobility assessment. Reported less ability to bedn at the ankle. Objective: General Observation: MÓNICA wraps to right LE. Cryocuff to right knee. TEDS to left leg and foot. Mental Status: A&O x 4 [] Pain: 2/10 on R calf ROM: Right Lower Extremity: Hip flexion WFL. Hip abduction WFL. Knee flexion 0 to about 90 degrees ankle dorsiflexion to neutral only . Ankle plantarflexion WFL. Left Lower Extremity: Hip flexion WFL. Hip abduction WFL. Knee flexion WFL. Ankle dorsiflexion WFL. Ankle plantarflexion WFL. Strength: Right Lower Extremity: Hip flexors 5/5. Hip abductors 5/5. Knee flexors 5/5. Knee extensors 3-/5. Ankle dorsiflexors 3-/5. Ankle plantarflexors 5/5. Left Lower Extremity:Hip flexors 5/5. Hip abductors 5/5. Knee flexors 5/5. Knee extensors 5/5. Ankle dorsiflexors 5/5. Ankle plantarflexors 5/5. Sensation: Intact as to pain and light pressure in bilateral lower extremities Bed Mobility/Transfers: Minimal cueing provided for use of B hands as needed for support, movement sequence, AD management, and posture to reduce fall risk and minimize pain report Supine to sit stand by assist Sit to stand stand by assist Stand to sit stand by assist Bed to chair stand by assist Gait: Facilitate safe and correct performance of level surface and covering a distance of 150 feet reciprocal swing through gait pattern using front standby assist and minimal cueing for AD management, limb advancement, increased knee flexion right side during swing phase, and posture to minimize and reduce fall risk. Stairs: Guided patient with safe and correct performance 6 x 4 inch steps and 4 x 6 inch step rails with step to gait pattern and standby assist from PT with minimal verbal cueing for increased flexion on the right side during each ascent and for safety strategy to reduce pain report and fall risk. Balance: Static Sitting: Normal Dynamic Sitting: Normal Static Standing: Fair Dynamic Standing: fair Special Tests: Mobility Limitations Standardized Measure [facility] 6 clicks Basic Mobility Inpatient Short Form: Raw Score: 24 CMS Score: 0% deficit Informed Consent/Education: Patient instructed in purpose of PT consult. Packet containing TKA exercise protocol has been given to patient. Education and training on initial set of exercises that can be done at home have been completed with patient. Trained patient with correct performance of exercises below to maximize motor control, joint flexibility, soft tissue extensibility of the R knee musculature: Access Code: [email or web address] URL: [email or web address] Date: 06/11/2024 Prepared by: Anita Boone Exercises - Supine Quad Set - 1 x daily - 7 x weekly - 1 sets - 10 reps - 5 hold - Supine Heel Slide - 1 x daily - 7 x weekly - 1 sets - 10 reps - 5 hold - Supine Ankle Pumps - 1 x daily - 7 x weekly - 1 sets - 10 reps - 5 hold - Small Range Straight Leg Raise - 1 x daily - 7 x weekly - 1 sets - 10 reps - 5 hold - Seated March - 1 x daily - 7 x weekly - 1 sets - 10 reps - 5 hold ASSESSMENT: Gemma is a 74-year-old female with degenerative joint disease of the right hip status post right total knee arthroplasty on postoperative day 0. She requires the use of a front wheeled walker for all mobility ADL performance maximize independence and reduce fall risk. Patient presents with clinical signs and symptoms consistent with current/admitting diagnoses that have resulted to mobility limitations, gait instability, generalized weakness, and impairment of motor control as demonstrated by the following impairment level findings: 1. Decreased strength to right knee major muscle groups 2. Impaired standing balance 3. Limitation of joint range of motion in right knee Impairments are contributing to the following functional limitations: 1. Inability to safely ambulate without assistive device 2. Increase completion time for mobility ADL performance 3. Increased fall risk Patient is assessed [place] a 61270 moderate complexity based on the following: History: 74-year-old female with impairment level findings, functional limitations, and past medical history as indicated above Examination: Demonstrable impairment in strength, balance, and mobility level with underlying impairments and functional limitations as documented above Presentation: Evolving Decision Makin moderate complexity Goals: N/A. PT evaluation and 1-2 treatment sessions only for functional mobility training using recommended AD and for HEP instruction. Plan of Care/Treatment Plan: N/A. PT evaluation and 1-2 treatment session only for functional mobility training using recommended AD and for HEP instruction. DISCHARGE RECOMMENDATIONS: Home when medically cleared by orthopedic surgeon. Recommend outpatient PT services in order to optimize functional mobility outcomes and facilitate return to independent community ambulation without an assistive device. TREATMENT CODE/TIME: 21180 x 28 minutes for 1 unit (10:29?10:57). Thank you for the opportunity to participate in the care of this patient. Please sign an return this page within 30 days if you agree with the above POC. Thank you! Physician Signature Date [facility] Thank you for the opportunity to participate in the care of this patient. Anita Boone PT, DPT, CLT [facility] [place], [place]
--- NOTE | 2024-06-12 11:14 | W.ANESPOSTOP ---
Postoperative Evaluation Date, Time and Location Date Performed: 06/12/24 Time Performed: 09:50 Patient Location: Day Surgery Unit Vital Signs Most Recent Imported Vital Signs: Most Recent Vital Signs Temp Pulse Resp BP Pulse Ox 36.4 C L 72 16 117/64 94 06/12/24 10:19 06/12/24 10:19 06/12/24 10:19 06/12/24 10:19 06/12/24 10:19 Pain Score Most Recent Pain Score: Most Recent Pain Score Pain Level 0 06/12/24 10:19 Assessment Mental Status: Awake (Alert & Oriented to Patient Baseline) Airway and Respiratory Function: Patent airway with normal (patient baseline) respiratory exam Cardiovascular Function: Hemodynamically Stable Hydration Status: Adequately Hydrated Nausea & Vomiting: No Nausea or Vomiting Pain: Pt. Denies Any Pain Peripheral Nerve Block: Regional nerve block not resolved at time of post operative discharge
--- NOTE | 2024-06-17 09:46 | ANES.NERVE_ITS ---
Nerve Block Single Injection Procedure Date and Time Date Performed: 06/12/24 Procedure Start: 07:09 Location Where Procedure Performed Procedure Location: Day Surgery Unit Reason Performed: Postoperative Analgesia Requesting Provider: Jose Canela Timeout Performed Timeout Performed: Yes Monitoring Used ECG, Blood Pressure and SpO2 Sterility Sterility: Hand Hygiene, Surgical Cap, Surgical Mask, Sterile Gloves and Chlorhexidine Sedation Given During Procedure Sedation Given (Indicate Dose Given): No Sedation given Patient Mental Status Patient Mental Status: Awake Nerve Block 1st Nerve Block: Laterality: Right Block Type: Adductor Canal Ultrasound Image Saved?: Yes Needle / Catheter Used: 100mm SonoPlex II Local Anesthetic Bolus (Indicate Dose Given): Lidocaine used for local infiltration of skin, Injected in 3-5ml increments after negative blood aspiration and Bupivacaine 0.25% Dose:: 15 Additives (Indicate Dose Given): None Ultrasound: Sterile probe cover and gel used Nerve Stimulator: Supplement to Ultrasound use and No twitch or parasthes ia noted < 0.5 mA Paresthesia: None Procedure Tolerated: No Complications and Patient tolerated well Procedure Outcome: Successful Performed By: Jay Kowalski
== END 2024-06-12 11:25 | disposition home or self-care (01) ==
PROVIDERS: PCP Nurse Practitioner Family; Visit Provider Student in an Organized Health Care Education/Training Program
PROC: (CPT 27447; principal; 2024-06-12 07:30)
DX: M17.11 Unilateral primary osteoarthritis, right knee (principal); E55.9 Vitamin D deficiency, unspecified; I10 Essential (primary) hypertension; J45.909 Unspecified asthma, uncomplicated; E78.00 Pure hypercholesterolemia, unspecified; I65.22 Occlusion and stenosis of left carotid artery
CPT/HCPCS: 27447; 76942; 97162; C1776; J0665; J0690; J1100; J2371; J2401; J2405; J2704

== ENCOUNTER 2024-06-27 11:32 | Outpatient (CLI) | payer MEDICARE, SELFPAY ==
--- NOTE | 2024-06-27 10:55 | DI.RAD_ITS ---
Exam(s) XR KNEE RT 1V XR STANDING ALIGNMENT EXAM: XR STANDING ALIGNMENT and XR knee RT 1 V CLINICAL HISTORY: 1ST POST OP S/P R TKA. TECHNIQUE: 2D digital imaging was performed. Five images were obtained. COMPARISON: CR XR STANDING ALIGNMENT from 08/07/2023 CR XR KNEE LT 1V from 08/07/2023 CR XR KNEE RT 3V AP,LAT,MARISOL from 12/28/2023 FINDINGS: BONES: The hips are well maintained. The patient has bilateral total knee replacements. Since the p rior examination the patient has undergone a right total knee replacement. The orthopedic hardware a ppear intact and unremarkable. The ankles are well maintained.There is no significant leg length dis crepancy. SOFT TISSUE: Vascular calcifications are present. IMPRESSION: Bilateral total knee replacements. DATA REPOSITORY: RADIATION DOSE DELIVERED:
== END 2024-06-27 11:33 | disposition home or self-care (01) ==
LOC: DIORS 11:32
PROVIDERS: PCP Nurse Practitioner Family; Referring Provider Nurse Practitioner Family; Visit Provider Student in an Organized Health Care Education/Training Program
DX: Z96.653 Presence of artificial knee joint, bilateral
CPT/HCPCS: 73560; 77073

== ENCOUNTER 2024-07-29 15:59 | Outpatient (CLI) | payer MEDICARE, SELFPAY ==
--- NOTE | 2024-07-29 12:45 | DI.RAD_ITS ---
Exam(s) XR KNEE LT 2V AP,LAT EXAM: XR KNEE LT 2V AP,LAT INDICATION: ANNUAL F/U. COMPARISON: CR XR STANDING ALIGNMENT from 06/27/2024 CR XR KNEE RT 1V from 06/27/2024 TECHNIQUE: 2D digital imaging was performed. Two views. FINDINGS: Stable alignment of left total knee prosthesis. No abnormal bony lucencies. No visible joint effusi on. Impression: Stable postoperative appearance. DATA REPOSITORY: RADIATION DOSE DELIVERED:
== END 2024-07-29 16:00 | disposition home or self-care (01) ==
LOC: DIORS 15:59
PROVIDERS: PCP Nurse Practitioner Family; Visit Provider Student in an Organized Health Care Education/Training Program
DX: Z47.1 Aftercare following joint replacement surgery (principal); Z96.651 Presence of right artificial knee joint; Z96.652 Presence of left artificial knee joint
CPT/HCPCS: 99024; 73560

== ENCOUNTER 2025-01-17 13:55 | Day surgery (SDC) | payer MEDICARE, SELFPAY ==
--- NOTE | 2025-01-16 20:31 | W.PREOPHP ---
Assessment and Plan Assessment and plan (1) Nuclear age-related cataract, right eye: Status: Acute Assessment and plan: Assessment: Visually significant cataract both eyes. Plan: Cataract extraction with intraocular lens implantation right eye followed by left eye. (2) Nuclear age-related cataract, left eye: Status: Acute Assessment and plan: Assessment: Visually significant cataract both eyes. Plan: Cataract extraction with intraocular lens implantation right eye followed by left eye History of Present Illness History of Present Illness Chief Complaint: Progressive decreased vision both eyes Narrative: The patient is a 73-year-old lady with history of progressive decreased vision in both eyes at both distance and near. She notes significant difficulty reading ingredients on a recipe list and has glare from headlights at night and can no longer see road signs. Review of Systems All systems reviewed & are unremarkable except as noted in HPI and below PFSH All Active Problems (Updated 01/16/25 @ 20:38 by Isaias Mar MD) Nuclear age-related cataract, right eye (Acute) Nuclear age-related cataract, left eye (Acute) History of total right knee replacement (Acute 06/12/24) Mass of left lower leg (Acute) Hypertension (Chronic) Carotid stenosis, left (Chronic) 10/15/18 50-60% stenosis Vitamin D deficiency disease (Acute) Medical History White coat syndrome with hypertension 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 s/p ORIF---DOS 11/23/21 Osteoarthritis of carpometacarpal (CMC) joint of right thumb s/p trapezial arthroplasty: 05/15/2019 History of lumpectomy of both breasts Hx of section Hx of tubal ligation Family History Mother Diabetes Mitral valve prolapse Aortic stenosis Kidney disease Father Alcohol abuse Sister Breast cancer Recovered Brother Leukemia CLL Sister Breast cancer Remission Sister Lung cancer Social History Smoking/Tobacco Use Status: Former Tobacco Use Quit Date: 09/11/79 Tobacco: How many years used: 10 Smoking risk assessment performed?: Yes Alcohol Intake: current Alcohol Intake frequency: 0-2 drinks per day Alcohol type: wine Drug use: Never Substance use type: does not use Housing: house 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 Current gender identity: female Other: - Genaro Do you feel safe at home: Yes (lives alone) Additional Social history: lives alone Meds Allergies and Home Medications Allergies Allergy/AdvReac Type Severity Reaction Status Date / Time atorvastatin Allergy Severe Other (See Verified 01/17/25 14:08 Comment) Sulfa (Sulfonamide Allergy Severe Anaphylaxsi Verified 01/17/25 14:08 Antibiotics) s rosuvastatin (From Crestor) Allergy Other (See Verified 01/17/25 14:08 Comment) lisinopril AdvReac Intermediate Other (See Verified 01/17/25 14:08 Comment) Penicillins AdvReac Mild rash Verified 01/17/25 14:08 Home Medications ?Medication ?Instructions ?Recorded ?Confirmed ?Type ProAir HFA 90 mcg/actuation 2 puff inhalation Q4H PRN 03/20/18 01/17/25 History aerosol inhaler (albuterol sulfate) cholecalciferol (vitamin D3) 25 1,000 unit PO HS 05/07/19 01/17/25 History mcg (1,000 unit) capsule hydroxychloroquine 200 mg tablet 200 mg PO HS 11/19/21 01/17/25 History amlodipine 5 mg tablet 5 mg PO HS 07/17/23 01/17/25 History acetaminophen 500 mg tablet 1,000 mg (2 x 500 mg) PO TID #90 06/12/24 01/17/25 Rx tabs pantoprazole 40 mg tablet,delayed 40 mg PO DAILY #30 tabs 06/12/24 01/17/25 Rx release Exam Eyes Other: Most recent ocular examination is significant for corrected visual acuity of 20/40 OD, 20/70 OS. Extract motility is normal. Intraocular pressure is 16 OD, 17 OS. Slit-lamp examination shows bilateral nuclear cataracts. Dilated funduscopic examination shows disc cupping of 0.3 OU with normal vessels, macula, peripheral retina and vitreous. Resp Auscultation: clear to auscultation bilaterally Cardio Rate: regular rate Rhythm: regular rhythm
--- NOTE | 2025-01-17 06:53 | ANES.PREOP_ITS ---
General Info Date of Service Date Performed: 01/17/25 Height: 5 ft Weight: 56.699 kg Body Mass Index (BMI): 24.4 Surgical Procedure: Operation Date: 01/17/25 16:40 Proposed Procedure Side Surgeon p Cataract Extraction with IOL Implant Right Isaias Mar MD Meds Allergies and Home Medications Allergies Allergy/AdvReac Type Severity Reaction Status Date / Time atorvastatin Allergy Severe Other (See Verified 01/17/25 14:08 Comment) Sulfa (Sulfonamide Allergy Severe Anaphylaxsi Verified 01/17/25 14:08 Antibiotics) s rosuvastatin (From Crestor) Allergy Other (See Verified 01/17/25 14:08 Comment) lisinopril AdvReac Intermediate Other (See Verified 01/17/25 14:08 Comment) Penicillins AdvReac Mild rash Verified 01/17/25 14:08 Home Medication ?Medication ?Instructions ?Recorded ProAir HFA 90 mcg/actuation 2 puff inhalation Q4H PRN 03/20/18 aerosol inhaler (albuterol sulfate) cholecalciferol (vitamin D3) 25 1,000 unit PO DAILY 05/07/19 mcg (1,000 unit) capsule hydroxychloroquine 200 mg tablet 200 mg PO DAILY 11/19/21 amlodipine 5 mg tablet 5 mg PO DAILY 07/17/23 acetaminophen 500 mg tablet 1,000 mg (2 x 500 mg) PO TID #90 06/12/24 tabs pantoprazole 40 mg tablet,delayed 40 mg PO DAILY #30 tabs 06/12/24 release Current Visit Medications: Current Medications Generic Name Dose Route Start Last Admin Trade Name Freq PRN Reason Stop Dose Admin Acetaminophen 1,000 mg 01/17/25 06:00 Acetaminophen 500 Mg Tab PO 02/16/25 05:59 Q4H PRN PRN Balanced Salt Solution 500 ml 01/17/25 06:00 Balanced Salt Soln.-Plus 500 Ml Bag OP 02/16/25 05:59 DIRECTED MERY Miscellaneous Medication 0 ml 01/17/25 06:00 Prednisolone 1%, Moxifloxacin 0.5%, Bromfenac 0.09% 5.6ml Btl OD 02/16/25 05:59 DIRECTED MERY Miscellaneous Medication 0 ml 01/17/25 06:00 Tropicam./Phenyleph. (1/2.5%) 5 Ml Btl OD 02/16/25 05:59 DIRECTED [facility] Tetracaine HCl 0 ml 01/17/25 06:00 Tetracaine 0.5% 4 Ml Btl OD 02/16/25 05:59 DIRECTED [facility] PFSH Active Problems Active Problems: Problem Status Onset Code Nuclear age-related cataract, right eye Acute H25.11 Nuclear age-related cataract, left eye Acute H25.12 History of total right knee replacement Acute 06/12/24 Z96.651 Mass of left lower leg Acute R22.42 Hypertension Chronic I10 Carotid stenosis, left Chronic I65.22 Vitamin D deficiency disease Acute E55.9 Medical History Medical History White coat syndrome with hypertension 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 Asthma Osteoarthritis Hypercholesterolemia Seasonal allergies Carotid artery stenosis Medical History Comments:: Per pt. states when she had general anesthesia with her wrist, she was cloudy for 3 weeks, and BP went aarti high intra-op. 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---DOS 11/23/21 Osteoarthritis of carpometacarpal (CMC) joint of right thumb s/p trapezial arthroplasty: 05/15/2019 History of lumpectomy of both breasts Hx of section Hx of tubal ligation Tobacco Smoking/Tobacco Use Status: Former Tobacco Use Passive smoking exposure: No Alcohol Alcohol Intake: current Alcohol intake frequency: 0-2 drinks per day Alcohol type: wine Substance Use Substance use: Never Substance use type: does not use Vital Signs and Lab Results Lab Results Blood Type / Crossmatch: No Data to Display Complete Blood Count: No Data to Display Complete Metabolic Panel: No Data to Display Liver Function Panel: No Data to Display Coagulation Panel: No Data to Display Cardiac Panel: No Data to Display Arterial Blood Gas: No Data to Display Venous Blood Gas: No Data to Display Pancreas Panel: No Data to Display Thyroid Panel: No Data to Display Infectious Disease: No Data to Display Blood Cultures: No Data to Display Toxicology Panel: No Data to Display Imaging and Studies Imaging and Studies Study information below may be from another EMR and interpreted by another provider. Please see original notes in EMR for more complete details. Echocardiogram Summary: 07/01/20: Conclusion Left Ventricle : The left ventricle is normal size. The left ventricular systolic function is normal. The left ventricular ejection fraction is within the normal range. There is normal left ventricular wall thickness. There is normal LV segmental wall motion. The left ventricular diastolic function is normal. LVEF is 55%. Right Ventricle : The right ventricle is normal size. The right ventricular systolic function is normal. Atria : The left atrium size is normal. The right atrium size is normal. Mitral Valve : Mild mitral annular calcification. Mild mitral regurgitation. No evidence of mitral valve stenosis. Tricuspid Valve : The tricuspid valve is normal in structure. Trace tricuspid regurgitation. Unable to assess PA pressure. There is no tricuspid valve stenosis. Great Vessels : The aortic root is normal in size. The ascending aorta is mildly dilated. Aortic arch is not well visualized. IVC is normal in size and collapses >50% with inspiration. There is no prior study available for comparison. Carotid Artery Summary:: 10/15/2018: CAROTID ULTRASOUND: There is a mild amount of calcific plaque in the right common carotid bulb. The velocity measurements in the right internal carotid artery are in the normal range, consistent with mild stenosis. The left common carotid bulb shows a moderate quantity of calcific plaque. There is velocity elevation in the proximal left internal carotid artery consistent with a 50-60% stenosis. The right vertebral artery shows antegrade flow. Bi-directional flow is noted in the left vertebral artery. IMPRESSION: Moderate stenosis of 50-60% in the proximal left internal carotid artery. Anesthesia Assessment and Plan Anesthesia History Personal History: Other Family History: No Family History of Anesthesia Complications Exercise Tolerance Exercise Tolerance: Metabolic Equivalents>4 Cardiac & Pulmonary Exam Cardiac Exam: Normal S1/S2 Heart Sounds Pulmonary Exam: Clear Bilateral Breath Sounds Implantable Cardiac Device Does patient have a Pacemaker or an ICD?: No Airway Exam Known Difficult Airway: No Mallampati Class: 3 Mouth Opening: Narrow (< 3cm) Thyromental Distance: Greater than 3 cm Neck Range of Motion: Full ROM Neck Circumference: Normal Teeth Condition: Normal Dentition ASA Classification ASA Score: ASA 3 Emergency Case?: No NPO Status NPO Status: NPO Clears >2 hours, Solids >8 hours Anesthesia Plan Resuscitation Status: Full Code Anesthesia Technique: MAC Anesthesia Airway Planned: Natural Airway Monitors Used: Standard Monitors Preoperative Comments:: 74 yo female for cataract. no MKO Sig PMHx: HTN (amlodipine), carotid stenosis, asthma (proair), GERD (omeprazole), lupus (hydroxychloroquine), former smoker, occ EtOh. ECHO: LVEF 55%, mild MR, trace TR Carotid US: moderate stenosis 50-60% of prox left ICA. Previous Anes: - TKA x 2, spinal, prop sedation, no issues. - fracture, murray 2 grade 2b, no issues. - hand arthroplasty, LMA 3, no issues.
[2025-01-17 13:50] VITALS: BMI 24.4
[2025-01-17 14:00] VITALS: BP 143/75; PULSE 76; RESP 16; TEMP 36.4; O2SAT 97
[2025-01-17] MEDS: Tropicam./Phenyleph. (1/2.5%) 5 ML BTL OD ×3 (14:10→14:24)
[2025-01-17] MEDS: Duovisc Viscoelastic System EACH 1 EACH (14:34)
[2025-01-17] MEDS: Lidocaine 1% Pres-Free 5 ML VIAL (14:34)
[2025-01-17] MEDS: Phenylephrine/Lidocaine (15/10) MG/ML 1 ML VIAL (14:35)
[2025-01-17] MEDS: Moxifloxacin-PF 1 MG/ML VIAL (14:35)
[2025-01-17] MEDS: Balanced Salt Soln.-PLUS 500 ML BAG OP (14:36)
[2025-01-17] MEDS: Prednisolone 1%, Moxifloxacin 0.5%, Bromfenac 0.09% 5.6ML BTL OD (14:36)
[2025-01-17] MEDS: Povidone-Iodine Ophth 30 ML BTL (14:36)
[2025-01-17] MEDS: Tetracaine 0.5% 4 ML BTL OD (14:37)
[2025-01-17 14:40] VITALS: BP 160/79; PULSE 73; RESP 16; TEMP 36.3; O2SAT 97
--- NOTE | 2025-01-17 14:52 | W.PM.DSUDISC ---
Date of service: 01/17/25 Discharge Plan Disposition Patient Disposition: Home Discharge Details Attending Provider: Isaias Mar Primary Care Provider: Daisy Werner Home Meds and New Rx's Prescriptions: No Action hydroxychloroquine 200 mg tablet 200 mg PO HS cholecalciferol (vitamin D3) 1,000 unit capsule 1,000 unit PO HS amlodipine 5 mg tablet 5 mg PO HS albuterol sulfate [ProAir HFA] 8.5 GM HFA aerosol inhaler 2 puff Inhalation Q4H PRN acetaminophen 500 mg tablet 1,000 mg PO TID Qty: 90 3RF pantoprazole 40 mg tablet,delayed release (DR/EC) 40 mg PO DAILY Qty: 30 0RF Discharge Instructions Stand Alone Forms: [facility] Post-Op [facility] ([facility]) Discharge Orders Discharge Orders: Discharge Order (Routine); Ordered 01/17/25 Ordered By: Isaias Mar DS: Diagnosis Discharge Diagnosis (1) Nuclear age-related cataract, right eye: Status: Resolved
--- NOTE | 2025-01-17 14:53 | W.PM.OP ---
Operative Note Operative Note PRE-OP DIAGNOSIS: Nuclear cataract, right eye POST-OP DIAGNOSIS: same PROCEDURE: Cataract extraction using phacoemulsification with intraocular lens implant, right eye SURGEON: Isaias Mar ANESTHESIA TYPE: Local By Surgeon and MAC Refer to Anesthesia Record ESTIMATED BLOOD LOSS: 0 PATHOLOGY: none sent COMPLICATIONS: None Patient was transported to: same day Patient's condition: stable Implants: Master & Master Tecnis Eyhance [id number] Indications: Progressive visual loss due to cataract, right eye Procedure Description: CATARACT SURGERY OPERATIVE REPORT PREOPERATIVE DIAGNOSIS: 1. Nuclear cataract, right eye POSTOPERATIVE DIAGNOSIS: Same OPERATION: 1. Cataract extraction using phacoemulsification with posterior chamber intraocular lens implant, right eye. IOL: IOL Harness Worker/Model: Master & Master Tecnis Eyhance DIB00 IOL Power: + 22.0 diopters IOL Serial Number: [id number] Optic Diameter: 6.0mm Haptic/Overall Diameter: 13.0mm PHACO INFO: Nickolas Motivating Wellnessurion Vision System with OZil and Active Fluidics Cumulative Dispersed Energy (CDE): 11.49 seconds SURGEON: Isaias Mar MD, RITA ANESTHESIA: Monitored Anesthesia Care (MAC), with local sub-tenon's anesthetic infiltration COMPLICATIONS: None SPECIMENS: None INDICATIONS FOR PROCEDURE: Patient is a 74-year-old lady with history of diminished visual acuity in her right eye secondary to the development of nuclear cataract. She is significantly symptomatic that she desires cataract surgery and attempt to improve and maximize her vision. See office notes for detailed information. PROCEDURE: The correct surgical eye was identified and marked as the right eye and the pupil was dilated in the preoperative area using mydriatics and cycloplegics. The dilated pupil size was 5.0 mm. The patient elected to proceed without oral sedation. The patient was brought to the operating room where cardiopulmonary monitoring was instituted and surgical time-out was performed, confirming the correct operative eye and IOL power. Topical anesthesia was administered and ophthalmic povidone-iodine 5% was instilled into the conjunctival fornices. The michelle-ocular area was prepped with Betadine 10% solution and draped in the usual sterile fashion for intraocular surgery, including an aperture drape. A Tegaderm transparent film dressing was cut in half and used to cover the lashes and lid margins. Care was taken to sequester the lashes and lid margins under the Tegaderm dressing. A lid speculum was placed between the lids of the operative eye and the Nickolas LuxOR Revalia operating microscope was maneuvered into position. Krissy scissors were then used to make a conjunctival buttonhole approximately 6mm posterior to the limbus in the inferonasal quadrant. Blunt dissection was carried out to expose bare sclera, and a blunt-tipped sub-tenon?s anesthesia cannula was introduced and passed posteriorly along the globe where non-preserved plain lidocaine was injected into posterior sub-Tenon?s space. A sideport knife was used to make a paracentesis port. Intraocular phenylephrine/lidocaine was injected into the anterior chamber. The anterior chamber was filled with viscoelastic. A keratome knife was used to construct a 2-plane clear corneal tunnel extending 2.0mm into clear cornea. A flap was raised on the anterior capsule and capsulorhexis forceps were used to complete a continuous curvilinear capsulorhexis of 5.0 mm. Balanced salt solution was then used to perform cortical cleaving hydrodissection and nuclear hydrodelineation until the lens could be freely rotated within the capsular bag. The lens nucleus was then disassembled and removed within the capsular bag and iris plane using phacoemulsification. Residual cortical material was removed using the I/A handpiece. The posterior capsule was carefully polished to remove as much residual lens epithelial cells as safely possible. The capsular bag was then inflated and the anterior chamber deepened with cohesive viscoelastic. The lens implant described above was inserted into the capsular bag using the Master and Samantha Simplicity pre-loaded injector. A Kuglen hook was used to dial the IOL into position. Residual viscoelastic was then removed first from posterior to the IOL, then from the anterior chamber using the I/A handpiece. The lens implant was noted to center nicely within the capsular bag. The incisions were stromally hydrated, and the anterior chamber was reformed using BSS. Then 0.5cc of moxifloxacin 1.0mg/ml were injected into the capsular bag and anterior chamber. The incisions were checked with a Weck spear and found to be secure. Several drops of ophthalmic povidone-iodine 5% were then applied to the eye followed by two drops ocombination steroid/NSAID/antibiotic solution. The drapes were removed and a clear plastic protective eye shield was placed over the eye. The patient was then returned to Same Day Surgery in stable condition. Date of Procedure: 01/17/25
--- NOTE | 2025-01-17 15:03 | W.ANESPOSTOP ---
Postoperative Evaluation Date, Time and Location Date Performed: 01/17/25 Time Performed: 15:03 Patient Location: Day Surgery Unit Vital Signs Most Recent Imported Vital Signs: Most Recent Vital Signs Temp Pulse Resp BP Pulse Ox 36.3 C L 73 16 160/79 H 97 01/17/25 14:40 01/17/25 14:40 01/17/25 14:40 01/17/25 14:40 01/17/25 14:40 Pain Score Most Recent Pain Score: Most Recent Pain Score Pain Level 0 01/17/25 14:40 Assessment Mental Status: Awake (Alert & Oriented to Patient Baseline) Airway and Respiratory Function: Patent airway with normal (patient baseline) respiratory exam Cardiovascular Function: Hemodynamically Stable Hydration Status: Adequately Hydrated Nausea & Vomiting: No Nausea or Vomiting Pain: Pt. Denies Any Pain Peripheral Nerve Block: Patient did not receive a nerve block
== END 2025-01-17 15:15 | disposition home or self-care (01) ==
LOC: SUR 13:59
PROVIDERS: PCP Nurse Practitioner Family; Visit Provider Ophthalmology
PROC: (CPT 66984; principal; 2025-01-17 16:30)
DX: H25.11 Age-related nuclear cataract, right eye (principal); I10 Essential (primary) hypertension; K21.9 Gastro-esophageal reflux disease without esophagitis
CPT/HCPCS: 66984; 00123; V2632; J2003

== ENCOUNTER 2025-01-31 07:59 | Day surgery (SDC) | payer MEDICARE, SELFPAY ==
[2025-01-31 08:30] VITALS: BP 135/62; PULSE 80; RESP 17; TEMP 36.2; O2SAT 96
[2025-01-31] MEDS: Tropicam./Phenyleph. (1/2.5%) 5 ML BTL OS ×3 (08:40→08:51)
--- NOTE | 2025-01-31 10:02 | ANES.PREOP_ITS ---
General Info Date of Service Date Performed: 01/31/25 Height: 5 ft Weight: 60.9 kg Body Mass Index (BMI): 26.2 Surgical Procedure: Operation Date: 01/31/25 10:40 Proposed Procedure Side Surgeon p Cataract Extraction with IOL Implant Left Isaias Mar MD Meds Allergies and Home Medications Allergies Allergy/AdvReac Type Severity Reaction Status Date / Time atorvastatin Allergy Severe Other (See Verified 01/31/25 08:47 Comment) Sulfa (Sulfonamide Allergy Severe Anaphylaxsi Verified 01/31/25 08:47 Antibiotics) s rosuvastatin (From Crestor) Allergy Other (See Verified 01/31/25 08:47 Comment) lisinopril AdvReac Intermediate Other (See Verified 01/31/25 08:47 Comment) Penicillins AdvReac Mild rash Verified 01/31/25 08:47 Home Medication ?Medication ?Instructions ?Recorded ProAir HFA 90 mcg/actuation 2 puff inhalation Q4H PRN 03/20/18 aerosol inhaler (albuterol sulfate) cholecalciferol (vitamin D3) 25 1,000 unit PO HS 05/07/19 mcg (1,000 unit) capsule hydroxychloroquine 200 mg tablet 200 mg PO HS 11/19/21 amlodipine 5 mg tablet 5 mg PO HS 07/17/23 acetaminophen 500 mg tablet 1,000 mg (2 x 500 mg) PO TID #90 06/12/24 tabs Current Visit Medications: Current Medications Generic Name Dose Route Start Last Admin Trade Name Freq PRN Reason Stop Dose Admin Acetaminophen 1,000 mg 01/31/25 06:20 Acetaminophen 500 Mg Tab PO 03/02/25 06:19 Q4H PRN PRN Balanced Salt Solution 500 ml 01/31/25 06:20 Balanced Salt Soln.-Plus 500 Ml Bag OP 03/02/25 06:19 DIRECTED [facility] Miscellaneous Medication 0 ml 01/31/25 06:20 Prednisolone 1%, Moxifloxacin 0.5%, Bromfenac 0.09% 5.6ml Btl OS 03/02/25 06:19 DIRECTED [facility] Miscellaneous Medication 0 ml 01/31/25 06:20 01/31/25 08:51 Tropicam./Phenyleph. (1/2.5%) 5 Ml Btl OS 03/02/25 06:19 1 drp DIRECTED [facility] Administration Tetracaine HCl 0 ml 01/31/25 06:20 Tetracaine 0.5% 4 Ml Btl OS 03/02/25 06:19 DIRECTED [facility] PFSH Active Problems Active Problems: Problem Status Onset Code Nuclear age-related cataract, right eye Resolved H25.11 Nuclear age-related cataract, left eye Chronic H25.12 History of total right knee replacement Acute 06/12/24 Z96.651 Mass of left lower leg Acute R22.42 Hypertension Chronic I10 Carotid stenosis, left Chronic I65.22 Vitamin D deficiency disease Acute E55.9 Medical History Medical History White coat syndrome with hypertension 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 Asthma Osteoarthritis Hypercholesterolemia Seasonal allergies Carotid artery stenosis Medical History Comments:: Per pt. states when she had general anesthesia with her wrist, she was cloudy for 3 weeks, and BP went aarti high intra-op. 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---DOS 11/23/21 Osteoarthritis of carpometacarpal (CMC) joint of right thumb s/p trapezial arthroplasty: 05/15/2019 History of lumpectomy of both breasts Hx of section Hx of tubal ligation Tobacco Smoking/Tobacco Use Status: Former Tobacco Use Passive smoking exposure: No Alcohol Alcohol Intake: current Alcohol intake frequency: 0-2 drinks per day Alcohol type: wine Substance Use Substance use: Never Substance use type: does not use Vital Signs and Lab Results Vital Signs Most Recent Vital Signs in EMR: Most Recent Vital Signs Temp Pulse Resp BP Pulse Ox 36.2 C L 80 17 135/62 96 01/31/25 08:30 01/31/25 08:30 01/31/25 08:30 01/31/25 08:30 01/31/25 08:30 Lab Results Blood Type / Crossmatch: No Data to Display Complete Blood Count: No Data to Display Complete Metabolic Panel: No Data to Display Liver Function Panel: No Data to Display Coagulation Panel: No Data to Display Cardiac Panel: No Data to Display Arterial Blood Gas: No Data to Display Venous Blood Gas: No Data to Display Pancreas Panel: No Data to Display Thyroid Panel: No Data to Display Infectious Disease: No Data to Display Blood Cultures: No Data to Display Toxicology Panel: No Data to Display Imaging and Studies Imaging and Studies Study information below may be from another EMR and interpreted by another provider. Please see original notes in EMR for more complete details. Echocardiogram Summary: 07/01/20: Conclusion Left Ventricle : The left ventricle is normal size. The left ventricular systolic function is normal. The left ventricular ejection fraction is within the normal range. There is normal left ventricular wall thickness. There is normal LV segmental wall motion. The left ventricular diastolic function is normal. LVEF is 55%. Right Ventricle : The right ventricle is normal size. The right ventricular systolic function is normal. Atria : The left atrium size is normal. The right atrium size is normal. Mitral Valve : Mild mitral annular calcification. Mild mitral regurgitation. No evidence of mitral valve stenosis. Tricuspid Valve : The tricuspid valve is normal in structure. Trace tricuspid regurgitation. Unable to assess PA pressure. There is no tricuspid valve stenosis. Great Vessels : The aortic root is normal in size. The ascending aorta is mildly dilated. Aortic arch is not well visualized. IVC is normal in size and collapses >50% with inspiration. There is no prior study available for comparison. Carotid Artery Summary:: 10/15/2018: CAROTID ULTRASOUND: There is a mild amount of calcific plaque in the right common carotid bulb. The velocity measurements in the right internal carotid artery are in the normal range, consistent with mild stenosis. The left common carotid bulb shows a moderate quantity of calcific plaque. There is velocity elevation in the proximal left internal carotid artery consistent with a 50-60% stenosis. The right vertebral artery shows antegrade flow. Bi-directional flow is noted in the left vertebral artery. IMPRESSION: Moderate stenosis of 50-60% in the proximal left internal carotid artery. Anesthesia Assessment and Plan Anesthesia History Personal History: Other Family History: No Family History of Anesthesia Complications Exercise Tolerance Exercise Tolerance: Metabolic Equivalents>4 Cardiac & Pulmonary Exam Cardiac Exam: Normal S1/S2 Heart Sounds Pulmonary Exam: Clear Bilateral Breath Sounds Implantable Cardiac Device Does patient have a Pacemaker or an ICD?: No Airway Exam Known Difficult Airway: No Mallampati Class: 3 Mouth Opening: Narrow (< 3cm) Thyromental Distance: Greater than 3 cm Neck Range of Motion: Full ROM Neck Circumference: Normal Teeth Condition: Normal Dentition ASA Classification ASA Score: ASA 3 Emergency Case?: No NPO Status NPO Status: NPO Clears >2 hours, Solids >8 hours Anesthesia Plan Resuscitation Status: Full Code Anesthesia Technique: MAC Anesthesia Airway Planned: Natural Airway Monitors Used: Standard Monitors Preoperative Comments:: 74 yo female for 2nd cataract. no MKO Sig PMHx: HTN (amlodipine), carotid stenosis, asthma (proair), GERD (omeprazole), lupus (hydroxychloroquine), former smoker, occ EtOh. ECHO: LVEF 55%, mild MR, trace TR Carotid US: moderate stenosis 50-60% of prox left ICA. Previous Anes: - TKA x 2, spinal, prop sedation, no issues. - fracture, murray 2 grade 2b, no issues. - hand arthroplasty, LMA 3, no issues.
[2025-01-31 10:05] VITALS: BMI 26.2
[2025-01-31] MEDS: Tetracaine 0.5% 4 ML BTL OS (11:12)
[2025-01-31] MEDS: Povidone-Iodine Ophth 30 ML BTL (11:13)
[2025-01-31] MEDS: Lidocaine 1% Pres-Free 5 ML VIAL (11:18)
[2025-01-31] MEDS: Phenylephrine/Lidocaine (15/10) MG/ML 1 ML VIAL (11:18)
[2025-01-31] MEDS: Duovisc Viscoelastic System EACH 1 EACH (11:19)
[2025-01-31] MEDS: Balanced Salt Soln.-PLUS 500 ML BAG OP (11:20)
[2025-01-31] MEDS: Moxifloxacin-PF 1 MG/ML VIAL (11:32)
[2025-01-31] MEDS: Prednisolone 1%, Moxifloxacin 0.5%, Bromfenac 0.09% 5.6ML BTL OS (11:33)
[2025-01-31 11:37] VITALS: BP 131/71; PULSE 80; RESP 14; TEMP 36.6; O2SAT 95
--- NOTE | 2025-01-31 11:39 | W.PM.DSUDISC ---
Date of service: 01/31/25 Discharge Plan Disposition Patient Disposition: Home Discharge Details Attending Provider: Isaias Mar Primary Care Provider: Daisy Werner Home Meds and New Rx's Prescriptions: No Action hydroxychloroquine 200 mg tablet 200 mg PO HS cholecalciferol (vitamin D3) 1,000 unit capsule 1,000 unit PO HS amlodipine 5 mg tablet 5 mg PO HS albuterol sulfate [ProAir HFA] 8.5 GM HFA aerosol inhaler 2 puff Inhalation Q4H PRN acetaminophen 500 mg tablet 1,000 mg PO TID Qty: 90 3RF Discharge Instructions Stand Alone Forms: DSU Post-Op CataractAnderson (DSU) Discharge Orders Discharge Orders: Discharge Order (Routine); Ordered 01/31/25 Ordered By: Isaias Mar DS: Diagnosis Discharge Diagnosis (1) Nuclear age-related cataract, left eye: Status: Resolved
--- NOTE | 2025-01-31 11:40 | ROE_ITS ---
Operative Note Operative Note PRE-OP DIAGNOSIS: Nuclear cataract, left eye POST-OP DIAGNOSIS: same PROCEDURE: Cataract extraction using phacoemulsification with intraocular lens implant, left eye SURGEON: Isaias Mar ANESTHESIA TYPE: Local By Surgeon and MAC Refer to Anesthesia Record PATHOLOGY: none sent COMPLICATIONS: None Patient was transported to: same day Patient's condition: stable Implants: Master and Master Tecnis Eyhance [id number] Indications: Progressive decreased vision due to cataract, left eye Procedure Description: CATARACT SURGERY OPERATIVE REPORT PREOPERATIVE DIAGNOSIS: 1. Nuclear cataract, left eye POSTOPERATIVE DIAGNOSIS: Same OPERATION: 1. Cataract extraction using phacoemulsification with posterior chamber intraocular lens implant, left eye. IOL: IOL Ceramic Coater Machine/Model: Master & Master Tecnis Eyhance DIB00 IOL Power: + 24.5 diopters IOL Serial Number: [id number] Optic Diameter: 6.0 mm Haptic/Overall Diameter: 13.0 mm PHACO INFO: Nickolas Nuovo Biologicsurion Vision System with OZil and Active Fluidics Cumulative Dispersed Energy (CDE): 14.13 seconds SURGEON: Isaias Mar MD, RITA ANESTHESIA: Monitored A [facility] (MAC), with local sub-tenon's anesthetic infiltration COMPLICATIONS: None SPECIMENS: None INDICATIONS FOR PROCEDURE: The patient is a 74-year-old lady with history of diminished visual acuity in both eyes secondary to the development of bilateral nuclear cataract. She is significantly symptomatic that she desires cataract surgery in attempt to improve and maximize her vision. She has already undergone cataract surgery in the right eye and is doing well postoperatively. She has a history of using contact lens monovision, right eye distance left eye near. She now presents for cataract surgery in the left eye with a postop refractive target of -2.25 diopters. See office notes for detailed information. PROCEDURE: The correct surgical eye was identified and marked as the left eye and the pupil was dilated in the preoperative area using mydriatics and cycloplegics. The dilated pupil size was 7.0 mm. The patient elected to proceed without oral sedation. The patient was brought to the operating room where cardiopulmonary monitoring was instituted and surgical time-out was performed, confirming the correct operative eye and IOL power. Topical anesthesia was administered and ophthalmic povidone-iodine 5% was instilled into the conjunctival fornices. The micehlle-ocular area was prepped with Betadine 10% solution and draped in the usual sterile fashion for intraocular surgery, including an aperture drape. A Tegaderm transparent film dressing was cut in half and used to cover the lashes and lid margins. Care was taken to sequester the lashes and lid margins under the Tegaderm dressing. A lid speculum was placed between the lids of the operative eye and the Nickolas LuxOR Revalia operating microscope was maneuvered into position. Krissy scissors were then used to make a conjunctival buttonhole approximately 6mm posterior to the limbus in the inferonasal quadrant. Blunt dissection was c arried out to expose bare sclera, and a blunt-tipped sub-tenon?s anesthesia cannula was introduced and passed posteriorly along the globe where non- preserved plain lidocaine was injected into posterior sub-Tenon?s space. A sideport knife was used to make a paracentesis port. Intraocular phenylephrine/lidocaine was injected into the anterior chamber.. The anterior chamber was filled with viscoelastic. A keratome knife was used to construct a 2-plane near-clear corneal tunnel extending 2.0mm into clear cornea. A flap was raised on the anterior capsule and capsulorhexis forceps were used to complete a continuous curvilinear capsulorhexis of 5.0 mm. Balanced salt solution was then used to perform cortical cleaving hydrodissection and nuclear hydrodelineation until the lens could be freely rotated within the capsular bag. The lens nucleus was then disassembled and removed within the capsular bag and iris plane using phacoemulsification. Residual cortical material was removed using the irrigation/aspiration handpiece. The posterior capsule was carefully polished to remove as much residual lens epithelial cells as safely possible. The capsular bag was then inflated and the anterior chamber deepened with viscoelastic. The lens implant described above was inserted into the capsular bag using the Master and Master Simplicity pre-loaded injector. A Kuglen hook was used to dial the IOL into position. Residual viscoelastic was then removed first from posterior to the IOL, then from the anterior chamber using the I/A handpiece. The lens implant was noted to center nicely within the capsular bag. The incisions were stromally hydrated, and the anterior chamber was reformed using BSS. Then 0.5cc of moxifloxacin 1.0mg/ml were injected into the capsular bag and anterior chamber. The incisions were checked with a Weck spear and found to be secure. Several drops of ophthalmic povidone-iodine 5% were then applied to the eye followed by two drops of Imprimis combination prednisolone/moxifloxacin/nepafenac solution. The drapes were removed and a clear plastic protective eye shield was placed over the eye. The patient was then returned to Same Day Surgery in stable condition. Date of Procedure: 01/31/25
--- NOTE | 2025-01-31 11:59 | W.ANESPOSTOP ---
Postoperative Evaluation Date, Time and Location Date Performed: 01/31/25 Time Performed: 11:38 Patient Location: Day Surgery Unit Vital Signs Most Recent Imported Vital Signs: Most Recent Vital Signs Temp Pulse Resp BP Pulse Ox 36.6 C 80 14 131/71 95 01/31/25 11:37 01/31/25 11:37 01/31/25 11:37 01/31/25 11:37 01/31/25 11:37 Pain Score Most Recent Pain Score: Most Recent Pain Score Pain Level 0 01/31/25 11:37 Assessment Mental Status: Awake (Alert & Oriented to Patient Baseline) Airway and Respiratory Function: Patent airway with normal (patient baseline) respiratory exam Cardiovascular Function: Hemodynamically Stable Hydration Status: Adequately Hydrated Nausea & Vomiting: No Nausea or Vomiting Pain: Pt. Denies Any Pain Peripheral Nerve Block: Patient did not receive a nerve block
== END 2025-01-31 11:57 | disposition home or self-care (01) ==
LOC: SUR 07:59
PROVIDERS: PCP Nurse Practitioner Family; Visit Provider Ophthalmology
PROC: (CPT 66984; principal; 2025-01-31 10:30)
DX: H25.12 Age-related nuclear cataract, left eye (principal); Z98.41 Cataract extraction status, right eye
CPT/HCPCS: 66984; 00123; V2632; J2003

== ENCOUNTER 2025-06-16 13:58 | Outpatient (CLI) | payer MEDICARE, SELFPAY ==
--- NOTE | 2025-06-16 13:14 | DI.RAD_ITS ---
Exam(s) XR KNEE RT 2V AP,LAT EXAM: XR KNEE RT 2V AP,LAT CLINICAL HISTORY: ANNUAL F/U R TKA. TECHNIQUE: 2D digital imaging was performed. Two images were obtained. AP and lateral views were obtained. COMPARISON: CR XR KNEE LT 2V AP,LAT from 07/29/2024 FINDINGS: BONES: There are stable post operative changes of a right total knee arthroplasty present. No fracture or dislocation. JOINTS: The orthopedic hardware is in good position. No evidence of hardware loosening. SOFT TISSUE: Atherosclerotic calcification is present. IMPRESSION: Stable right total knee arthroplasty. DATA REPOSITORY: RADIATION DOSE DELIVERED:
== END 2025-06-16 13:59 | disposition home or self-care (01) ==
LOC: DIORS 13:58
PROVIDERS: PCP Nurse Practitioner Family; Visit Provider Physician Assistant
DX: Z47.1 Aftercare following joint replacement surgery (principal); Z96.651 Presence of right artificial knee joint
CPT/HCPCS: 99212; 73560